=== PATIENT | male | born 1995 | race Caucasian/White ===

== ENCOUNTER 2016-05-05 20:16 | Inpatient (IN) | payer OTHER ==
[~2016-05-05] VITALS: Ht 170.2 cm; Wt 98.3 kg
[~2016-05-05 20:16] MED LIST: ABILIFY10 MG PO; ABILIFY30 MG PO; ATIVAN0.5 MG PO; CITALOPRAM HBR20 M1 PO; CLARITIN10 M3 PO; CLONAZEPAM0.5 MG PO; CLONIDINE HCL0.2 MG PO; COGENTIN0.5 MG PO; CONCERTA18 MG PO; DEPAKOTE250 MG PO; FLONASE16 GM NS; HALDOL5 MG PO; HYDROXYZINE HCL50 MG PO; LITHIUM CARBON300 MG PO; METHYLIN2.5 MG PO; METHYLIN20 MG PO; PANOXYL156 GM; PUMP; STRATTERA60 MG PO
[2016-05-05] MEDS ORDERED: RISPERDAL4 MG PO (20:46)
[2016-05-05] MEDS ORDERED: TOPAMAX100 MG PO (20:46)
[2016-05-05] MEDS ORDERED: GUANFACINE HCL E4 MG PO (20:46)
[2016-05-05] MEDS ORDERED: LITHIUM CARBON600 MG PO (20:47)
[2016-05-05] MEDS ORDERED: RITALIN5 MG PO (20:47)
[2016-05-05] MEDS ORDERED: SEROQUEL200 MG PO (20:47)
[2016-05-05] MEDS ORDERED: COGENTIN1 MG PO (20:47)
[2016-05-05] MEDS ORDERED: DESYREL 150 MG150 MG PO (20:48)
[2016-05-05 21:58] LABS: ADD MIUA? NO; BILIRUBIN NEGATIVE; BLOOD NEGATIVE; COLOR STRAW ((YELLOW)); GLUCOSE (STRIP) NEGATIVE; KETONES NEGATIVE; LEUKOCYTES NEGATIVE; NITRITE NEGATIVE; PROTEIN (STRIP) 30; SPECIFIC GRAVITY 1.008 (1.000-1.030); UCUL ADDED? NO; UROBILINOGEN 0.2 MG/DL (0.2-1.0)
[2016-05-05 22:08] LABS: AMPHETAMINE NEGATIVE (500 ng/mL); BARBITURATES NEGATIVE (200 ng/mL); BENZODIAZEPINES NEGATIVE (150 ng/mL); COCAINE NEGATIVE (150 ng/mL); INTERNAL CONTROLS VALID? YES; METHADONE NEGATIVE (200 ng/mL); METHAMPHETAMINE NEGATIVE (500 ng/mL); OPIATES (MORPHINE) NEGATIVE (100 ng/mL); OXYCODONE NEGATIVE (100 ng/mL); PHENCYCLIDINE NEGATIVE (25 ng/mL); PROPOXYPHENE NEGATIVE (300 ng/mL); THC CANNABINOIDS NEGATIVE (50 ng/mL); TRICYCLIC ANTIDEPRESSANTS NEGATIVE (300 ng/mL)
[2016-05-05 22:11] LABS: HEMATOCRIT 42.1 % (38.0-50.0); MCH 29.6 PG (29.0-34.0); MCHC 35.2 G/DL (30.0-36.0); MCV 84.2 FL (86-99); MEAN PLAT.VOLUME 11.7 uM^3 (9.0-12.4); PLATELET COUNT 240 K/uL (156-360); RBC DIS.WIDTH-CV 13.1 % (11.8-14.6); RBC DIS.WIDTH-SD 40.2 % (39-53); WHITE BLOOD COUNT 20.3 K/uL (4.1-10.2)
[2016-05-05 22:24] LABS: CHLORIDE 111 mEq/L (99-109); POTASSIUM 3.5 mEq/L (3.7-5.4); SODIUM 137 mEq/L (136-147)
[2016-05-05 22:26] LABS: GLUCOSE 115 mg/dL (70-99)
[2016-05-05 22:27] LABS: ANION GAP 12 MEQ/L (2-14)
[2016-05-05 22:28] LABS: TOTAL BILIRUBIN 0.4 mg/dL (0.0-1.0)
[2016-05-05 22:29] LABS: ALKALINE PHOSPHATASE 101 IU/L (3-129); GFR ESTIMATE (CALCULATED) > 59 mL/min/
[2016-05-05 22:31] LABS: UREA NITROGEN (BUN) 14 mg/dL (9-23)
[2016-05-06 00:39] LABS: BASOPHIL COUNT 0.1 K/uL (0-0.1); EOSINOPHIL (%) 0.9 % (0-5); EOSINOPHIL COUNT 0.2 K/uL (0-0.3); HEMATOCRIT 42.1 % (38.0-50.0); IMMATURE GRANULOCYTE (%) 0.8 % (0.0-0.7); IMMATURE GRANULOCYTE COUNT 0.1 K/uL; INSTRUMENT ABS NEUTROPHIL CT 13.4 K/uL; LYMPHOCYTE COUNT 2.8 K/uL (1.0-2.8); MCH 29.7 PG (29.0-34.0); MCHC 35.4 G/DL (30.0-36.0); MEAN PLAT.VOLUME 11.7 uM^3 (9.0-12.4); MONOCYTE (%) 6.6 % (3-12); MONOCYTE COUNT 1.2 K/uL (0-0.8); NEUTROPHIL (%) 75.8 % (45-76); NEUTROPHIL COUNT 13.4 K/uL (1.8-6.4); PLATELET COUNT 243 K/uL (156-360); RBC DIS.WIDTH-CV 13.1 % (11.8-14.6); RBC DIS.WIDTH-SD 39.7 % (39-53); RED BLOOD COUNT 5.01 M/uL (4.00-5.50); WHITE BLOOD COUNT 17.7 K/uL (4.1-10.2)
[2016-05-06 00:50] LABS: CHLORIDE 114 mEq/L (99-109); POTASSIUM 3.6 mEq/L (3.7-5.4); SODIUM 140 mEq/L (136-147)
[2016-05-06 00:51] LABS: GLUCOSE 111 mg/dL (70-99)
[2016-05-06 00:53] LABS: ANION GAP 11 MEQ/L (2-14)
[2016-05-06 00:55] LABS: GFR ESTIMATE (CALCULATED) > 59 mL/min/
[2016-05-06 00:56] LABS: UREA NITROGEN (BUN) 13 mg/dL (9-23)
[2016-05-06 02:21] LABS: BASOPHIL COUNT 0.1 K/uL (0-0.1); EOSINOPHIL (%) 1.4 % (0-5); EOSINOPHIL COUNT 0.2 K/uL (0-0.3); IMMATURE GRANULOCYTE (%) 0.5 % (0.0-0.7); IMMATURE GRANULOCYTE COUNT 0.1 K/uL; INSTRUMENT ABS NEUTROPHIL CT 10.4 K/uL; LYMPHOCYTE COUNT 2.8 K/uL (1.0-2.8); MCH 29.9 PG (29.0-34.0); MCHC 35.4 G/DL (30.0-36.0); MCV 84.5 FL (86-99); MEAN PLAT.VOLUME 11.2 uM^3 (9.0-12.4); MONOCYTE (%) 7.8 % (3-12); MONOCYTE COUNT 1.2 K/uL (0-0.8); NEUTROPHIL (%) 71.2 % (45-76); NEUTROPHIL COUNT 10.4 K/uL (1.8-6.4); PLATELET COUNT 234 K/uL (156-360); RBC DIS.WIDTH-CV 13.2 % (11.8-14.6); RED BLOOD COUNT 4.85 M/uL (4.00-5.50); WHITE BLOOD COUNT 14.7 K/uL (4.1-10.2)
[2016-05-06 02:31] LABS: CHLORIDE 117 mEq/L (99-109); POTASSIUM 3.9 mEq/L (3.7-5.4); SODIUM 142 mEq/L (136-147)
[2016-05-06 02:33] LABS: GLUCOSE 91 mg/dL (70-99)
[2016-05-06 02:34] LABS: ANION GAP 9 MEQ/L (2-14)
[2016-05-06 02:37] LABS: GFR ESTIMATE (CALCULATED) > 59 mL/min/; UREA NITROGEN (BUN) 11 mg/dL (9-23)
[2016-05-06 04:32] VITALS: BP 134/77
[2016-05-06 07:40] VITALS: BP 113/65
[2016-05-06 16:02] VITALS: BP 131/78
[2016-05-07 07:53] VITALS: BP 124/70
[2016-05-07 15:38] VITALS: BP 123/63
[2016-05-08 07:25] VITALS: BP 110/63
[2016-05-08 15:32] VITALS: BP 125/66
[2016-05-09 07:47] VITALS: BP 106/74
[2016-05-09] MEDS ORDERED: LITHIUM CARBON300 M1 PO (10:25)
[2016-05-09] MEDS ORDERED: QUETIAPINE FUM300 MG PO (10:25)
[2016-05-09] MEDS ORDERED: TOPAMAX100 MG PO (10:25)
[2016-05-09] MEDS ORDERED: DESYREL 150 MG150 MG PO (10:25)
[2016-05-09] MEDS ORDERED: LITHIUM CARBON600 MG PO (10:25)
[2016-05-09] MEDS ORDERED: TENEX1 MG PO (10:25)
[2016-05-09] MEDS ORDERED: QUETIAPINE FUMA50 MG PO (10:25)
[2016-05-09] MEDS ORDERED: COGENTIN1 MG PO (10:25)
[2016-05-09] MEDS ORDERED: RISPERDAL4 MG PO (10:25)
== END 2016-05-09 11:36 | disposition home or self-care (01) | DRG 885 ==
LOC: EME → EDBD 20:16 → EME 20:16 → 1WEST 22:54 → EDOF 22:54 → 1WEST 05-06 03:46
PROVIDERS: Emergency Medicine
DX: F31.0 Bipolar disorder, current episode hypomanic (principal); E66.9 Obesity, unspecified
CPT/HCPCS: 71020; 80048; 80048 91; 80053; 80178; 81003; 83605; 85025; 85025 91; 85027; 90837; 97150 GO; 97165 GO; 99281; 99285; J7030

== ENCOUNTER 2016-07-25 00:51 | Emergency (ER) | payer OTHER ==
[~2016-07-25] VITALS: Ht 175.3 cm; Wt 111.6 kg
[~2016-07-25 00:51] MED LIST changes: +COGENTIN1 MG PO; +DESYREL 150 MG150 MG PO; +GUANFACINE HCL E4 MG PO; +LITHIUM CARBON300 M1 PO; +LITHIUM CARBON600 MG PO; +QUETIAPINE FUM300 MG PO; +QUETIAPINE FUMA50 MG PO; +RISPERDAL4 MG PO; +RITALIN5 MG PO; +SEROQUEL200 MG PO; +TENEX1 MG PO; +TOPAMAX100 MG PO
[2016-07-25 00:56] VITALS: BP 128/86
== END 2016-07-25 01:06 | disposition left against medical advice (07) ==
LOC: EME 00:51
DX: Z04.41 Encounter for examination and observation following alleged adult rape (principal); Z53.21 Procedure and treatment not carried out due to patient leaving prior to being seen by health care provider

== ENCOUNTER 2016-07-25 11:44 | Emergency (ER) | payer OTHER ==
[~2016-07-25] VITALS: Ht 170.2 cm; Wt 104.5 kg
[2016-07-25 12:13] LABS: EOSINOPHIL (%) 1.3 % (0-5); EOSINOPHIL COUNT 0.1 K/uL (0-0.3); HEMATOCRIT 46.4 % (38.0-50.0); IMMATURE GRANULOCYTE (%) 0.3 % (0.0-0.7); LYMPHOCYTE COUNT 2.3 K/uL (1.0-2.8); MCH 29.2 PG (29.0-34.0); MCHC 34.5 G/DL (30.0-36.0); MCV 84.7 FL (86-99); MEAN PLAT.VOLUME 11.4 uM^3 (9.0-12.4); MONOCYTE (%) 7.1 % (3-12); MONOCYTE COUNT 0.7 K/uL (0-0.8); NEUTROPHIL (%) 68.2 % (45-76); PLATELET COUNT 243 K/uL (156-360); RED BLOOD COUNT 5.48 M/uL (4.00-5.50); WHITE BLOOD COUNT 10.3 K/uL (4.1-10.2)
[2016-07-25 12:28] LABS: CHLORIDE 107 mEq/L (99-109); POTASSIUM 3.5 mEq/L (3.7-5.4); SODIUM 140 mEq/L (136-147)
[2016-07-25 12:29] LABS: GLUCOSE 97 mg/dL (70-99)
[2016-07-25 12:31] LABS: ANION GAP 12 MEQ/L (2-14)
[2016-07-25 12:33] LABS: GFR ESTIMATE (CALCULATED) > 59 mL/min/; SERUM ETHYL ALCOHOL < 10 mg/dL
[2016-07-25 12:34] LABS: UREA NITROGEN (BUN) 9 mg/dL (9-23)
[2016-07-25 13:48] LABS: ADD MIUA? YES; BILIRUBIN NEGATIVE; BLOOD NEGATIVE; COLOR YELLOW ((YELLOW)); GLUCOSE (STRIP) NEGATIVE; KETONES 5; LEUKOCYTES NEGATIVE; NITRITE NEGATIVE; PROTEIN (STRIP) 30; SPECIFIC GRAVITY 1.028 (1.000-1.030); UROBILINOGEN 0.2 MG/DL (0.2-1.0)
[2016-07-25 13:53] VITALS: BP 118/88
[2016-07-25 14:03] LABS: AMPHETAMINE NEGATIVE (500 ng/mL); BARBITURATES NEGATIVE (200 ng/mL); BENZODIAZEPINES NEGATIVE (150 ng/mL); COCAINE NEGATIVE (150 ng/mL); INTERNAL CONTROLS VALID? YES; METHADONE NEGATIVE (200 ng/mL); METHAMPHETAMINE NEGATIVE (500 ng/mL); OPIATES (MORPHINE) NEGATIVE (100 ng/mL); OXYCODONE NEGATIVE (100 ng/mL); PHENCYCLIDINE NEGATIVE (25 ng/mL); PROPOXYPHENE NEGATIVE (300 ng/mL); THC CANNABINOIDS NEGATIVE (50 ng/mL); TRICYCLIC ANTIDEPRESSANTS NEGATIVE (300 ng/mL)
[2016-07-25 14:16] LABS: BACTERIA NONE SEEN /HPF; EPITHELIAL CELLS RARE /HPF; GRANULAR CASTS 0-5 /LPF; HYALINE CASTS 0-5 /LPF; MUCUS 1+ /LPF; RED BLOOD CELLS 0-5 /HPF (0-5); WHITE BLOOD CELLS 0-5 /HPF (0-5)
[2016-07-26 13:43] LABS: TREPONEMA ANTIBODY NEGATIVE (NEGATIVE)
[2016-07-27 13:36] LABS: CHLAMYDIA TRACHOMATIS NEGATIVE; NEISSERIA GONORRHOEAE NEGATIVE
== END 2016-07-25 13:53 | disposition home or self-care (01) ==
LOC: EME 11:44
PROVIDERS: Emergency Medicine
DX: T76.21XA Adult sexual abuse, suspected, initial encounter (principal); Y92.003 Bedroom of unspecified non-institutional (private) residence as the place of occurrence of the external cause; F32.9 Major depressive disorder, single episode, unspecified; B35.6 Tinea cruris; F10.10 Alcohol abuse, uncomplicated; F41.9 Anxiety disorder, unspecified; F90.9 Attention-deficit hyperactivity disorder, unspecified type
CPT/HCPCS: 80048; 81003; 85025; 86780; 87491; 87591; 99281; 99285; G0480; J0696

== ENCOUNTER 2016-07-30 16:06 | Emergency (ER) | payer OTHER ==
[~2016-07-30] VITALS: Ht 175.3 cm; Wt 107.5 kg
[2016-07-30 18:04] VITALS: BP 132/80
== END 2016-07-30 18:05 | disposition home or self-care (01) ==
LOC: EME 16:06
DX: F32.9 Major depressive disorder, single episode, unspecified (principal); F63.81 Intermittent explosive disorder; Z91.14 Patient's other noncompliance with medication regimen
CPT/HCPCS: 90837; 99281; 99284

== ENCOUNTER 2016-09-19 17:13 | Emergency (ER) | payer OTHER ==
[~2016-09-19] VITALS: Ht 172.7 cm; Wt 113.8 kg
[2016-09-19 17:39] LABS: BASOPHIL COUNT 0.1 K/uL (0-0.1); EOSINOPHIL (%) 1.4 % (0-5); EOSINOPHIL COUNT 0.2 K/uL (0-0.3); HEMATOCRIT 44.7 % (38.0-50.0); IMMATURE GRANULOCYTE (%) 0.4 % (0.0-0.7); IMMATURE GRANULOCYTE COUNT 0.1 K/uL; INSTRUMENT ABS NEUTROPHIL CT 9.3 K/uL; LYMPHOCYTE COUNT 3.4 K/uL (1.0-2.8); MCH 29.5 PG (29.0-34.0); MCHC 36.2 G/DL (30.0-36.0); MCV 81.4 FL (86-99); MEAN PLAT.VOLUME 11.3 uM^3 (9.0-12.4); MONOCYTE (%) 6.7 % (3-12); MONOCYTE COUNT 0.9 K/uL (0-0.8); NEUTROPHIL (%) 66.8 % (45-76); NEUTROPHIL COUNT 9.3 K/uL (1.8-6.4); PLATELET COUNT 234 K/uL (156-360); RBC DIS.WIDTH-CV 12.8 % (11.8-14.6); RBC DIS.WIDTH-SD 37.9 % (39-53); RED BLOOD COUNT 5.49 M/uL (4.00-5.50); WHITE BLOOD COUNT 13.9 K/uL (4.1-10.2)
[2016-09-19 17:47] LABS: ADD MIUA? NO; BILIRUBIN NEGATIVE; BLOOD NEGATIVE; COLOR YELLOW ((YELLOW)); GLUCOSE (STRIP) NEGATIVE; KETONES NEGATIVE; LEUKOCYTES NEGATIVE; NITRITE NEGATIVE; PROTEIN (STRIP) NEGATIVE; SPECIFIC GRAVITY 1.017 (1.000-1.030); UROBILINOGEN 0.2 MG/DL (0.2-1.0)
[2016-09-19 17:52] LABS: CHLORIDE 109 mEq/L (99-109); POTASSIUM 3.8 mEq/L (3.7-5.4); SODIUM 138 mEq/L (136-147)
[2016-09-19 17:54] LABS: GLUCOSE 106 mg/dL (70-99)
[2016-09-19 17:55] LABS: ANION GAP 11 MEQ/L (2-14)
[2016-09-19 17:56] LABS: TOTAL BILIRUBIN 0.3 mg/dL (0.0-1.0)
[2016-09-19 17:57] LABS: ALKALINE PHOSPHATASE 129 IU/L (3-129)
[2016-09-19 17:58] LABS: GFR ESTIMATE (CALCULATED) > 59 mL/min/
[2016-09-19 17:59] LABS: UREA NITROGEN (BUN) 9 mg/dL (9-23)
[2016-09-19 18:01] LABS: LIPASE 22 U/L (1.0-51.0)
[2016-09-19 18:22] VITALS: BP 133/88
== END 2016-09-19 18:22 | disposition home or self-care (01) ==
LOC: EXP 17:13 → EME 17:13 → EXP 18:22
PROVIDERS: Physician Assistant
DX: R10.9 Unspecified abdominal pain (principal)
CPT/HCPCS: 74022; 80053; 80178; 81003; 83690; 85025; 99281; 99284

== ENCOUNTER 2016-09-28 13:48 | Inpatient (IN) | payer OTHER ==
[~2016-09-28] VITALS: Ht 172.7 cm; Wt 112.7 kg
[2016-09-28 14:32] LABS: HEMATOCRIT 45.9 % (38.0-50.0); MCH 28.9 PG (29.0-34.0); MCHC 34.6 G/DL (30.0-36.0); MCV 83.3 FL (86-99); MEAN PLAT.VOLUME 11.4 uM^3 (9.0-12.4); PLATELET COUNT 238 K/uL (156-360); RBC DIS.WIDTH-CV 13.1 % (11.8-14.6); RBC DIS.WIDTH-SD 39.8 % (39-53); RED BLOOD COUNT 5.51 M/uL (4.00-5.50); WHITE BLOOD COUNT 11.6 K/uL (4.1-10.2)
[2016-09-28 14:42] LABS: CHLORIDE 109 mEq/L (99-109); POTASSIUM 3.9 mEq/L (3.7-5.4); SODIUM 139 mEq/L (136-147)
[2016-09-28 14:44] LABS: GLUCOSE 92 mg/dL (70-99)
[2016-09-28 14:46] LABS: ANION GAP 10 MEQ/L (2-14)
[2016-09-28 14:47] LABS: SERUM ETHYL ALCOHOL < 10 mg/dL
[2016-09-28 14:48] LABS: GFR ESTIMATE (CALCULATED) > 59 mL/min/
[2016-09-28 14:49] LABS: UREA NITROGEN (BUN) 11 mg/dL (9-23)
[2016-09-28 14:56] LABS: AMPHETAMINE NEGATIVE (500 ng/mL); BARBITURATES NEGATIVE (200 ng/mL); BENZODIAZEPINES NEGATIVE (150 ng/mL); COCAINE NEGATIVE (150 ng/mL); INTERNAL CONTROLS VALID? YES; METHADONE NEGATIVE (200 ng/mL); METHAMPHETAMINE NEGATIVE (500 ng/mL); OPIATES (MORPHINE) NEGATIVE (100 ng/mL); OXYCODONE NEGATIVE (100 ng/mL); PHENCYCLIDINE NEGATIVE (25 ng/mL); PROPOXYPHENE NEGATIVE (300 ng/mL); THC CANNABINOIDS NEGATIVE (50 ng/mL); TRICYCLIC ANTIDEPRESSANTS NEGATIVE (300 ng/mL)
[2016-09-28 20:11] VITALS: BP 138/83
[2016-09-28] MEDS ORDERED: AMBIEN5 MG PO (20:54)
[2016-09-29 08:07] VITALS: BP 111/56
[2016-09-29 16:05] VITALS: BP 121/70
[2016-09-30 07:22] VITALS: BP 117/75
[2016-09-30 15:21] VITALS: BP 126/76
[2016-10-01 07:45] VITALS: BP 115/58
== END 2016-10-01 11:36 | disposition home or self-care (01) | DRG 885 ==
LOC: EME 13:48 → 1WEST 16:02 → EDOF 16:02 → ENRESERV 20:02 → 1WEST 20:03
PROVIDERS: Emergency Medicine
DX: F31.0 Bipolar disorder, current episode hypomanic (principal); R45.850 Homicidal ideations; R45.851 Suicidal ideations; Z91.14 Patient's other noncompliance with medication regimen; R47.9 Unspecified speech disturbances; R00.2 Palpitations; R03.0 Elevated blood-pressure reading, without diagnosis of hypertension; R53.83 Other fatigue; T50.905A Adverse effect of unspecified drugs, medicaments and biological substances, initial encounter; E66.9 Obesity, unspecified; R41.83 Borderline intellectual functioning; Z68.37 Body mass index [BMI] 37.0-37.9, adult
CPT/HCPCS: 80048; 80178; 85027; 90837; 93005; 97150 GO; 97165 GO; 99281; 99285; G0480

== ENCOUNTER 2016-10-21 20:32 | Emergency (ER) | payer OTHER ==
[~2016-10-21] VITALS: Ht 172.7 cm; Wt 114.0 kg
[~2016-10-21 20:32] MED LIST changes: +AMBIEN5 MG PO
[2016-10-21 21:26] LABS: ADD MIUA? NO; BILIRUBIN NEGATIVE; BLOOD NEGATIVE; COLOR YELLOW ((YELLOW)); GLUCOSE (STRIP) NEGATIVE; KETONES NEGATIVE; LEUKOCYTES NEGATIVE; NITRITE NEGATIVE; PROTEIN (STRIP) NEGATIVE; SPECIFIC GRAVITY 1.015 (1.000-1.030); UROBILINOGEN 0.2 MG/DL (0.2-1.0)
[2016-10-21 21:33] LABS: CHLORIDE 115 mEq/L (99-109); POTASSIUM 3.4 mEq/L (3.7-5.4); SODIUM 139 mEq/L (136-147)
[2016-10-21 21:34] LABS: HEMATOCRIT 43.6 % (38.0-50.0); MCH 28.7 PG (29.0-34.0); MCHC 34.9 G/DL (30.0-36.0); MCV 82.4 FL (86-99); MEAN PLAT.VOLUME 11.5 uM^3 (9.0-12.4); PLATELET COUNT 222 K/uL (156-360); RBC DIS.WIDTH-SD 38.7 % (39-53); RED BLOOD COUNT 5.29 M/uL (4.00-5.50); WHITE BLOOD COUNT 10.4 K/uL (4.1-10.2)
[2016-10-21 21:35] LABS: GLUCOSE 98 mg/dL (70-99)
[2016-10-21 21:36] LABS: ANION GAP 5 MEQ/L (2-14)
[2016-10-21 21:37] LABS: TOTAL BILIRUBIN 0.3 mg/dL (0.0-1.0)
[2016-10-21 21:38] LABS: SERUM ETHYL ALCOHOL < 10 mg/dL
[2016-10-21 21:39] LABS: ALKALINE PHOSPHATASE 123 IU/L (3-129); GFR ESTIMATE (CALCULATED) > 59 mL/min/
[2016-10-21 21:40] LABS: UREA NITROGEN (BUN) 12 mg/dL (9-23)
[2016-10-21 21:44] LABS: AMPHETAMINE NEGATIVE (500 ng/mL); BARBITURATES NEGATIVE (200 ng/mL); BENZODIAZEPINES NEGATIVE (150 ng/mL); COCAINE NEGATIVE (150 ng/mL); INTERNAL CONTROLS VALID? YES; METHADONE NEGATIVE (200 ng/mL); METHAMPHETAMINE NEGATIVE (500 ng/mL); OPIATES (MORPHINE) NEGATIVE (100 ng/mL); OXYCODONE NEGATIVE (100 ng/mL); PHENCYCLIDINE NEGATIVE (25 ng/mL); PROPOXYPHENE NEGATIVE (300 ng/mL); THC CANNABINOIDS NEGATIVE (50 ng/mL); TRICYCLIC ANTIDEPRESSANTS NEGATIVE (300 ng/mL)
[2016-10-21 22:11] VITALS: BP 144/101
== END 2016-10-21 22:12 | disposition home or self-care (01) ==
LOC: EME 20:32
PROVIDERS: Emergency Medicine
DX: F31.9 Bipolar disorder, unspecified (principal); R10.9 Unspecified abdominal pain; R45.4 Irritability and anger; Z91.14 Patient's other noncompliance with medication regimen
CPT/HCPCS: 80053; 81003; 85027; 90839; 99281; 99284; G0480

== ENCOUNTER 2016-10-22 14:08 | Emergency (ER) | payer OTHER ==
[~2016-10-22] VITALS: Ht 175.3 cm; Wt 114.5 kg
[2016-10-22 17:40] VITALS: BP 132/99
== END 2016-10-22 17:40 | disposition home or self-care (01) ==
LOC: EME 14:08
DX: F31.9 Bipolar disorder, unspecified (principal); F79 Unspecified intellectual disabilities; F90.9 Attention-deficit hyperactivity disorder, unspecified type
CPT/HCPCS: 99281; 99283

== ENCOUNTER 2016-10-27 22:19 | Emergency (ER) | payer OTHER ==
[~2016-10-27] VITALS: Ht 177.8 cm; Wt 114.9 kg
[2016-10-27 22:46] LABS: HEMATOCRIT 45.5 % (38.0-50.0); MCH 28.9 PG (29.0-34.0); MCHC 34.9 G/DL (30.0-36.0); MCV 82.7 FL (86-99); MEAN PLAT.VOLUME 11.2 uM^3 (9.0-12.4); PLATELET COUNT 213 K/uL (156-360); RBC DIS.WIDTH-SD 38.9 % (39-53); WHITE BLOOD COUNT 11.1 K/uL (4.1-10.2)
[2016-10-27 22:54] LABS: CHLORIDE 112 mEq/L (99-109); POTASSIUM 3.7 mEq/L (3.7-5.4); SODIUM 140 mEq/L (136-147)
[2016-10-27 22:56] LABS: GLUCOSE 131 mg/dL (70-99)
[2016-10-27 22:57] LABS: ANION GAP 13 MEQ/L (2-14)
[2016-10-27 22:58] LABS: TOTAL BILIRUBIN 0.2 mg/dL (0.0-1.0)
[2016-10-27 23:00] LABS: ALKALINE PHOSPHATASE 124 IU/L (3-129); GFR ESTIMATE (CALCULATED) > 59 mL/min/
[2016-10-27 23:01] LABS: UREA NITROGEN (BUN) 10 mg/dL (9-23)
[2016-10-27 23:39] LABS: SALICYLATE < 5.0 MG/DL (15-30)
[2016-10-27 23:45] LABS: TROP-I INTERPRETATION NEGATIVE; TROPONIN-I < 0.01 ng/mL (0.0-0.30)
[2016-10-28 03:33] LABS: ADD MIUA? NO; BILIRUBIN NEGATIVE; BLOOD NEGATIVE; COLOR YELLOW ((YELLOW)); GLUCOSE (STRIP) NEGATIVE; KETONES NEGATIVE; LEUKOCYTES NEGATIVE; NITRITE NEGATIVE; PROTEIN (STRIP) NEGATIVE; SPECIFIC GRAVITY 1.016 (1.000-1.030); UCUL ADDED? NO; UROBILINOGEN 0.2 MG/DL (0.2-1.0)
[2016-10-28 04:10] VITALS: BP 129/90
== END 2016-10-28 04:10 | disposition home or self-care (01) ==
LOC: EME 22:19
DX: M54.5 Low back pain (principal); H93.13 Tinnitus, bilateral
CPT/HCPCS: 71020; 74176; 80053; 80178; 81003; 84484; 85027; 99281; 99284; G0480

== ENCOUNTER 2016-11-06 19:28 | Inpatient (IN) | payer OTHER ==
[~2016-11-06] VITALS: Ht 174 cm; Wt 118.6 kg
[2016-11-06 22:26] LABS: ADD MIUA? NO; BILIRUBIN NEGATIVE; BLOOD NEGATIVE; COLOR YELLOW ((YELLOW)); GLUCOSE (STRIP) NEGATIVE; KETONES NEGATIVE; LEUKOCYTES NEGATIVE; NITRITE NEGATIVE; PROTEIN (STRIP) NEGATIVE; SPECIFIC GRAVITY 1.026 (1.000-1.030); UROBILINOGEN 0.2 MG/DL (0.2-1.0)
[2016-11-06 22:30] LABS: AMPHETAMINE NEGATIVE (500 ng/mL); BARBITURATES NEGATIVE (200 ng/mL); BENZODIAZEPINES NEGATIVE (150 ng/mL); COCAINE NEGATIVE (150 ng/mL); INTERNAL CONTROLS VALID? YES; METHADONE NEGATIVE (200 ng/mL); METHAMPHETAMINE NEGATIVE (500 ng/mL); OPIATES (MORPHINE) NEGATIVE (100 ng/mL); OXYCODONE NEGATIVE (100 ng/mL); PHENCYCLIDINE NEGATIVE (25 ng/mL); PROPOXYPHENE NEGATIVE (300 ng/mL); THC CANNABINOIDS NEGATIVE (50 ng/mL); TRICYCLIC ANTIDEPRESSANTS NEGATIVE (300 ng/mL)
[2016-11-07 00:37] LABS: HEMATOCRIT 45.2 % (38.0-50.0); MCH 28.8 PG (29.0-34.0); MCHC 34.7 G/DL (30.0-36.0); MCV 82.8 FL (86-99); MEAN PLAT.VOLUME 11.5 uM^3 (9.0-12.4); PLATELET COUNT 229 K/uL (156-360); RBC DIS.WIDTH-CV 13.1 % (11.8-14.6); RBC DIS.WIDTH-SD 39.1 % (39-53); RED BLOOD COUNT 5.46 M/uL (4.00-5.50); WHITE BLOOD COUNT 14.4 K/uL (4.1-10.2)
[2016-11-07 00:48] LABS: CHLORIDE 108 mEq/L (99-109); POTASSIUM 3.6 mEq/L (3.7-5.4); SODIUM 139 mEq/L (136-147)
[2016-11-07 00:49] LABS: GLUCOSE 119 mg/dL (70-99)
[2016-11-07 00:51] LABS: ANION GAP 7 MEQ/L (2-14)
[2016-11-07 00:53] LABS: GFR ESTIMATE (CALCULATED) > 59 mL/min/
[2016-11-07 00:54] LABS: UREA NITROGEN (BUN) 10 mg/dL (9-23)
[2016-11-07 11:02] VITALS: BP 90/71
[2016-11-07 11:23] VITALS: BP 90/71
[2016-11-07 15:46] VITALS: BP 123/67
[2016-11-08 08:14] VITALS: BP 96/54
[2016-11-08 15:53] VITALS: BP 117/58
[2016-11-09 07:52] VITALS: BP 103/52
== END 2016-11-09 12:39 | disposition home or self-care (01) | DRG 885 ==
LOC: EME 19:28 → EDOF 11-07 09:41 → 1WEST 11-07 09:41 → ENRESERV 11-07 10:26 → 1WEST 11-07 10:59
PROVIDERS: Nurse Practitioner Family
DX: F25.0 Schizoaffective disorder, bipolar type (principal); H66.92 Otitis media, unspecified, left ear; R45.850 Homicidal ideations; F78 Other intellectual disabilities; F91.9 Conduct disorder, unspecified; F63.81 Intermittent explosive disorder; F43.23 Adjustment disorder with mixed anxiety and depressed mood
CPT/HCPCS: 80048; 80178; 81003; 85027; 90686; 90839; 97150 GO; 97165 GO; 99281; 99285

== ENCOUNTER 2016-11-12 23:29 | Inpatient (IN) | payer OTHER ==
[~2016-11-12] VITALS: Ht 172.7 cm; Wt 125.0 kg
[2016-11-13 00:46] LABS: ADD MIUA? NO; BILIRUBIN NEGATIVE; BLOOD NEGATIVE; COLOR YELLOW ((YELLOW)); GLUCOSE (STRIP) NEGATIVE; KETONES NEGATIVE; LEUKOCYTES NEGATIVE; NITRITE NEGATIVE; PROTEIN (STRIP) 30; SPECIFIC GRAVITY 1.024 (1.000-1.030); UROBILINOGEN 0.2 MG/DL (0.2-1.0)
[2016-11-13 00:51] LABS: HEMATOCRIT 44.7 % (38.0-50.0); MCH 28.5 PG (29.0-34.0); MCHC 34.5 G/DL (30.0-36.0); MCV 82.6 FL (86-99); MEAN PLAT.VOLUME 11.1 uM^3 (9.0-12.4); PLATELET COUNT 230 K/uL (156-360); RBC DIS.WIDTH-SD 38.8 % (39-53); RED BLOOD COUNT 5.41 M/uL (4.00-5.50); WHITE BLOOD COUNT 11.5 K/uL (4.1-10.2)
[2016-11-13 01:00] LABS: CHLORIDE 109 mEq/L (99-109); POTASSIUM 3.4 mEq/L (3.7-5.4); SODIUM 141 mEq/L (136-147)
[2016-11-13 01:02] LABS: GLUCOSE 97 mg/dL (70-99)
[2016-11-13 01:03] LABS: ANION GAP 11 MEQ/L (2-14)
[2016-11-13 01:05] LABS: GFR ESTIMATE (CALCULATED) > 59 mL/min/; SERUM ETHYL ALCOHOL < 10 mg/dL
[2016-11-13 01:06] LABS: UREA NITROGEN (BUN) 9 mg/dL (9-23)
[2016-11-13 03:05] VITALS: BP 113/68
[2016-11-13 04:18] LABS: AMPHETAMINE NEGATIVE (500 ng/mL); BARBITURATES NEGATIVE (200 ng/mL); BENZODIAZEPINES NEGATIVE (150 ng/mL); COCAINE NEGATIVE (150 ng/mL); INTERNAL CONTROLS VALID? YES; METHADONE NEGATIVE (200 ng/mL); METHAMPHETAMINE NEGATIVE (500 ng/mL); OPIATES (MORPHINE) NEGATIVE (100 ng/mL); OXYCODONE NEGATIVE (100 ng/mL); PHENCYCLIDINE NEGATIVE (25 ng/mL); PROPOXYPHENE NEGATIVE (300 ng/mL); THC CANNABINOIDS NEGATIVE (50 ng/mL); TRICYCLIC ANTIDEPRESSANTS NEGATIVE (300 ng/mL)
[2016-11-13 07:00] LABS: UCUL ADDED? NO
[2016-11-13 07:54] VITALS: BP 119/59
[2016-11-13 15:31] VITALS: BP 129/76
[2016-11-14 07:14] VITALS: BP 117/75
[2016-11-14 15:24] VITALS: BP 118/74
[2016-11-15 07:22] VITALS: BP 118/66
[2016-11-15 15:23] VITALS: BP 115/70
[2016-11-16 07:32] VITALS: BP 100/60
[2016-11-16] MEDS ORDERED: ABILIFY5 MG PO (08:37)
[2016-11-16] MEDS ORDERED: QUETIAPINE FUM300 MG PO (08:42)
[2016-11-16] MEDS ORDERED: LITHIUM CARBON600 MG PO (08:42)
[2016-11-16] MEDS ORDERED: QUETIAPINE FUM100 MG PO (08:42)
[2016-11-16] MEDS ORDERED: COGENTIN1 MG PO (08:42)
[2016-11-16] MEDS ORDERED: TOPAMAX100 MG PO (08:42)
[2016-11-16] MEDS ORDERED: TENEX1 MG PO (08:42)
[2016-11-16] MEDS ORDERED: LITHIUM CARBON300 M1 PO (08:42)
[2016-11-16] MEDS ORDERED: TENEX2 MG PO (08:53)
== END 2016-11-16 10:36 | disposition home or self-care (01) | DRG 885 ==
LOC: EME 23:29 → EDOF 11-13 01:24 → 1WEST 11-13 01:24 → ENRESERV 11-13 02:55 → 1WEST 11-13 02:56
PROVIDERS: Emergency Medicine
DX: F25.0 Schizoaffective disorder, bipolar type (principal); R45.851 Suicidal ideations; F70 Mild intellectual disabilities; F22 Delusional disorders; R45.850 Homicidal ideations; Z91.5 Personal history of self-harm; Z23 Encounter for immunization
CPT/HCPCS: 80048; 81003; 85027; 90837; 97150 GO; 97165 GO; 99281; 99285; G0480

== ENCOUNTER 2017-01-05 21:10 | Emergency (ER) | payer OTHER ==
[~2017-01-05] VITALS: Ht 172.7 cm; Wt 114.1 kg
[~2017-01-05 21:10] MED LIST changes: +ABILIFY5 MG PO; +QUETIAPINE FUM100 MG PO; +TENEX2 MG PO
[2017-01-06 00:28] VITALS: BP 136/89
== END 2017-01-06 00:29 | disposition home or self-care (01) ==
LOC: EME 21:10
DX: F41.9 Anxiety disorder, unspecified (principal); R00.2 Palpitations; T43.215A Adverse effect of selective serotonin and norepinephrine reuptake inhibitors, initial encounter; T43.595A Adverse effect of other antipsychotics and neuroleptics, initial encounter; F90.9 Attention-deficit hyperactivity disorder, unspecified type; F32.9 Major depressive disorder, single episode, unspecified
CPT/HCPCS: 93005; 99281; 99283

== ENCOUNTER 2017-01-13 13:49 | Emergency (ER) | payer OTHER ==
[~2017-01-13] VITALS: Ht 172.7 cm; Wt 113.4 kg
[2017-01-13 14:37] LABS: HEMATOCRIT 46.2 % (38.0-50.0); MCH 29.5 PG (29.0-34.0); MCHC 34.6 G/DL (30.0-36.0); MCV 85.2 FL (86-99); MEAN PLAT.VOLUME 11.5 uM^3 (9.0-12.4); PLATELET COUNT 227 K/uL (156-360); RBC DIS.WIDTH-CV 13.2 % (11.8-14.6); RED BLOOD COUNT 5.42 M/uL (4.00-5.50); WHITE BLOOD COUNT 11.7 K/uL (4.1-10.2)
[2017-01-13 14:47] LABS: CHLORIDE 107 mEq/L (99-109); POTASSIUM 4.2 mEq/L (3.7-5.4); SODIUM 141 mEq/L (136-147)
[2017-01-13 14:49] LABS: GLUCOSE 91 mg/dL (70-99)
[2017-01-13 14:50] LABS: ANION GAP 10 MEQ/L (2-14)
[2017-01-13 14:52] LABS: SERUM ETHYL ALCOHOL < 10 mg/dL
[2017-01-13 14:53] LABS: GFR ESTIMATE (CALCULATED) > 59 mL/min/
[2017-01-13 14:54] LABS: UREA NITROGEN (BUN) 10 mg/dL (9-23)
[2017-01-13 14:56] LABS: SALICYLATE < 5.0 MG/DL (15-30)
[2017-01-13 15:07] LABS: AMPHETAMINE NEGATIVE (500 ng/mL); BARBITURATES NEGATIVE (200 ng/mL); BENZODIAZEPINES NEGATIVE (150 ng/mL); COCAINE NEGATIVE (150 ng/mL); INTERNAL CONTROLS VALID? YES; METHADONE NEGATIVE (200 ng/mL); METHAMPHETAMINE NEGATIVE (500 ng/mL); OPIATES (MORPHINE) NEGATIVE (100 ng/mL); OXYCODONE NEGATIVE (100 ng/mL); PHENCYCLIDINE NEGATIVE (25 ng/mL); PROPOXYPHENE NEGATIVE (300 ng/mL); THC CANNABINOIDS NEGATIVE (50 ng/mL); TRICYCLIC ANTIDEPRESSANTS NEGATIVE (300 ng/mL)
[2017-01-13 16:05] VITALS: BP 150/84
== END 2017-01-13 16:59 | disposition home or self-care (01) ==
LOC: EME 13:49
PROVIDERS: Emergency Medicine
DX: F32.9 Major depressive disorder, single episode, unspecified (principal); F25.0 Schizoaffective disorder, bipolar type; F70 Mild intellectual disabilities; F90.9 Attention-deficit hyperactivity disorder, unspecified type; F41.9 Anxiety disorder, unspecified; Z88.8 Allergy status to other drugs, medicaments and biological substances
CPT/HCPCS: 80048; 85027; 90837; 99281; 99285; G0480

== ENCOUNTER 2017-01-13 20:07 | Emergency (ER) | payer OTHER ==
[~2017-01-13] VITALS: Ht 172.7 cm; Wt 114.0 kg
[2017-01-13 21:39] LABS: BASOPHIL COUNT 0.1 K/uL (0-0.1); EOSINOPHIL (%) 1.4 % (0-5); EOSINOPHIL COUNT 0.2 K/uL (0-0.3); HEMATOCRIT 45.4 % (38.0-50.0); IMMATURE GRANULOCYTE (%) 0.4 % (0.0-0.7); IMMATURE GRANULOCYTE COUNT 0.1 K/uL; INSTRUMENT ABS NEUTROPHIL CT 6.6 K/uL; LYMPHOCYTE COUNT 3.5 K/uL (1.0-2.8); MCH 29.6 PG (29.0-34.0); MCHC 34.8 G/DL (30.0-36.0); MCV 85.2 FL (86-99); MEAN PLAT.VOLUME 11.2 uM^3 (9.0-12.4); MONOCYTE (%) 8.9 % (3-12); NEUTROPHIL (%) 57.7 % (45-76); NEUTROPHIL COUNT 6.6 K/uL (1.8-6.4); PLATELET COUNT 223 K/uL (156-360); RBC DIS.WIDTH-CV 13.3 % (11.8-14.6); RBC DIS.WIDTH-SD 41.2 % (39-53); RED BLOOD COUNT 5.33 M/uL (4.00-5.50); WHITE BLOOD COUNT 11.4 K/uL (4.1-10.2)
[2017-01-13 21:50] LABS: CHLORIDE 108 mEq/L (99-109); POTASSIUM 3.9 mEq/L (3.7-5.4); SODIUM 139 mEq/L (136-147)
[2017-01-13 21:52] LABS: GLUCOSE 108 mg/dL (70-99)
[2017-01-13 21:53] LABS: ANION GAP 9 MEQ/L (2-14)
[2017-01-13 21:54] LABS: TOTAL BILIRUBIN 0.2 mg/dL (0.0-1.0)
[2017-01-13 21:55] LABS: SERUM ETHYL ALCOHOL < 10 mg/dL
[2017-01-13 21:56] LABS: GFR ESTIMATE (CALCULATED) > 59 mL/min/
[2017-01-13 21:57] LABS: ALKALINE PHOSPHATASE 135 IU/L (3-129)
[2017-01-13 21:58] LABS: DIRECT BILIRUBIN 0.1 mg/dL (0.0-0.3); UREA NITROGEN (BUN) 12 mg/dL (9-23)
[2017-01-13 22:00] LABS: SALICYLATE < 5.0 MG/DL (15-30)
[2017-01-13 22:16] LABS: AMPHETAMINE NEGATIVE (500 ng/mL); BARBITURATES NEGATIVE (200 ng/mL); BENZODIAZEPINES NEGATIVE (150 ng/mL); COCAINE NEGATIVE (150 ng/mL); INTERNAL CONTROLS VALID? YES; METHADONE NEGATIVE (200 ng/mL); METHAMPHETAMINE NEGATIVE (500 ng/mL); OPIATES (MORPHINE) NEGATIVE (100 ng/mL); OXYCODONE NEGATIVE (100 ng/mL); PHENCYCLIDINE NEGATIVE (25 ng/mL); PROPOXYPHENE NEGATIVE (300 ng/mL); THC CANNABINOIDS NEGATIVE (50 ng/mL); TRICYCLIC ANTIDEPRESSANTS PRESUMPTIVE POSITIVE (300 ng/mL)
[2017-01-14 02:50] VITALS: BP 101/57
== END 2017-01-14 02:52 | disposition home or self-care (01) ==
LOC: EME 20:07
PROVIDERS: Emergency Medicine
DX: F25.0 Schizoaffective disorder, bipolar type (principal); F70 Mild intellectual disabilities; F32.9 Major depressive disorder, single episode, unspecified; F90.9 Attention-deficit hyperactivity disorder, unspecified type; F41.9 Anxiety disorder, unspecified
CPT/HCPCS: 80048 91; 80076; 85025; 90837; 93005; 99281; 99284; G0480

== ENCOUNTER 2017-01-16 21:49 | Emergency (ER) | payer OTHER ==
[~2017-01-16] VITALS: Ht 172.7 cm; Wt 115.5 kg
[2017-01-16 22:37] LABS: BASOPHIL COUNT 0.1 K/uL (0-0.1); EOSINOPHIL (%) 1.5 % (0-5); EOSINOPHIL COUNT 0.2 K/uL (0-0.3); HEMATOCRIT 44.8 % (38.0-50.0); IMMATURE GRANULOCYTE (%) 0.3 % (0.0-0.7); INSTRUMENT ABS NEUTROPHIL CT 7.6 K/uL; LYMPHOCYTE COUNT 3.7 K/uL (1.0-2.8); MCH 29.2 PG (29.0-34.0); MCHC 34.6 G/DL (30.0-36.0); MCV 84.4 FL (86-99); MEAN PLAT.VOLUME 11.5 uM^3 (9.0-12.4); MONOCYTE COUNT 0.9 K/uL (0-0.8); NEUTROPHIL (%) 60.9 % (45-76); NEUTROPHIL COUNT 7.6 K/uL (1.8-6.4); PLATELET COUNT 234 K/uL (156-360); RBC DIS.WIDTH-CV 13.2 % (11.8-14.6); RBC DIS.WIDTH-SD 40.6 % (39-53); RED BLOOD COUNT 5.31 M/uL (4.00-5.50); WHITE BLOOD COUNT 12.4 K/uL (4.1-10.2)
[2017-01-16 22:44] LABS: D-DIMER ELISA < 150.00 ng/mLDDU (<230)
[2017-01-16 22:47] LABS: CHLORIDE 108 mEq/L (99-109); POTASSIUM 3.7 mEq/L (3.7-5.4); SODIUM 139 mEq/L (136-147)
[2017-01-16 22:49] LABS: GLUCOSE 100 mg/dL (70-99)
[2017-01-16 22:50] LABS: ANION GAP 10 MEQ/L (2-14)
[2017-01-16 22:52] LABS: GFR ESTIMATE (CALCULATED) > 59 mL/min/
[2017-01-16 22:53] LABS: UREA NITROGEN (BUN) 15 mg/dL (9-23)
[2017-01-16 22:58] LABS: TROP-I INTERPRETATION NEGATIVE; TROPONIN-I < 0.01 ng/mL (0.0-0.30)
[2017-01-17 01:07] VITALS: BP 121/66
== END 2017-01-17 00:45 | disposition home or self-care (01) ==
LOC: EME 21:49
PROVIDERS: Emergency Medicine
DX: R00.0 Tachycardia, unspecified (principal); R00.2 Palpitations
CPT/HCPCS: 71020; 80048; 84484; 85025; 85379; 93005; 99281; 99285; J7030

== ENCOUNTER 2017-01-17 21:35 | Emergency (ER) | payer OTHER ==
[~2017-01-17] VITALS: Ht 172.7 cm; Wt 114.8 kg
[2017-01-17 22:42] LABS: HEMATOCRIT 45.7 % (38.0-50.0); MCHC 33.5 G/DL (30.0-36.0); MCV 86.7 FL (86-99); MEAN PLAT.VOLUME 11.3 uM^3 (9.0-12.4); PLATELET COUNT 221 K/uL (156-360); RBC DIS.WIDTH-CV 13.3 % (11.8-14.6); RBC DIS.WIDTH-SD 42.1 % (39-53); RED BLOOD COUNT 5.27 M/uL (4.00-5.50); WHITE BLOOD COUNT 11.4 K/uL (4.1-10.2)
[2017-01-17 22:46] LABS: ADD MIUA? NO; BILIRUBIN NEGATIVE; BLOOD NEGATIVE; COLOR STRAW ((YELLOW)); GLUCOSE (STRIP) NEGATIVE; KETONES NEGATIVE; LEUKOCYTES NEGATIVE; NITRITE NEGATIVE; PROTEIN (STRIP) NEGATIVE; SPECIFIC GRAVITY 1.016 (1.000-1.030); UCUL ADDED? NO; UROBILINOGEN 0.2 MG/DL (0.2-1.0)
[2017-01-17 22:53] LABS: CHLORIDE 106 mEq/L (99-109); POTASSIUM 3.5 mEq/L (3.7-5.4); SODIUM 140 mEq/L (136-147)
[2017-01-17 22:54] LABS: GLUCOSE 94 mg/dL (70-99)
[2017-01-17 22:56] LABS: ANION GAP 11 MEQ/L (2-14)
[2017-01-17 22:57] LABS: SERUM ETHYL ALCOHOL < 10 mg/dL
[2017-01-17 22:58] LABS: GFR ESTIMATE (CALCULATED) > 59 mL/min/ (58.99-99999)
[2017-01-17 22:59] LABS: UREA NITROGEN (BUN) 12 mg/dL (9-23)
[2017-01-18 00:03] LABS: AMPHETAMINE NEGATIVE (500 ng/mL); BARBITURATES NEGATIVE (200 ng/mL); BENZODIAZEPINES NEGATIVE (150 ng/mL); COCAINE NEGATIVE (150 ng/mL); INTERNAL CONTROLS VALID? YES; METHADONE NEGATIVE (200 ng/mL); METHAMPHETAMINE NEGATIVE (500 ng/mL); OPIATES (MORPHINE) NEGATIVE (100 ng/mL); OXYCODONE NEGATIVE (100 ng/mL); PHENCYCLIDINE NEGATIVE (25 ng/mL); PROPOXYPHENE NEGATIVE (300 ng/mL); THC CANNABINOIDS NEGATIVE (50 ng/mL); TRICYCLIC ANTIDEPRESSANTS PRESUMPTIVE POSITIVE (300 ng/mL)
[2017-01-18 00:10] VITALS: BP 140/92
== END 2017-01-18 00:11 | disposition home or self-care (01) ==
LOC: EME 21:35
PROVIDERS: Emergency Medicine
DX: F91.9 Conduct disorder, unspecified (principal); F25.0 Schizoaffective disorder, bipolar type; F70 Mild intellectual disabilities; Z04.6 Encounter for general psychiatric examination, requested by authority; F32.9 Major depressive disorder, single episode, unspecified; F41.9 Anxiety disorder, unspecified; F90.9 Attention-deficit hyperactivity disorder, unspecified type
CPT/HCPCS: 80048; 81003; 85027; 90837; 99281; 99284; G0480

== ENCOUNTER 2017-01-19 19:09 | Emergency (ER) | payer OTHER ==
[~2017-01-19] VITALS: Ht 172.7 cm; Wt 109.0 kg
[2017-01-19 21:43] LABS: BASOPHIL COUNT 0.1 K/uL (0-0.1); EOSINOPHIL (%) 1.4 % (0-5); EOSINOPHIL COUNT 0.2 K/uL (0-0.3); HEMATOCRIT 47.3 % (38.0-50.0); IMMATURE GRANULOCYTE (%) 0.3 % (0.0-0.7); INSTRUMENT ABS NEUTROPHIL CT 7.5 K/uL; LYMPHOCYTE COUNT 3.2 K/uL (1.0-2.8); MCH 29.4 PG (29.0-34.0); MCV 86.3 FL (86-99); MEAN PLAT.VOLUME 11.3 uM^3 (9.0-12.4); MONOCYTE (%) 7.3 % (3-12); MONOCYTE COUNT 0.9 K/uL (0-0.8); NEUTROPHIL (%) 63.6 % (45-76); NEUTROPHIL COUNT 7.5 K/uL (1.8-6.4); PLATELET COUNT 242 K/uL (156-360); RBC DIS.WIDTH-CV 13.1 % (11.8-14.6); RBC DIS.WIDTH-SD 40.7 % (39-53); RED BLOOD COUNT 5.48 M/uL (4.00-5.50); WHITE BLOOD COUNT 11.8 K/uL (4.1-10.2)
[2017-01-19 21:53] LABS: CHLORIDE 104 mEq/L (99-109); POTASSIUM 4.2 mEq/L (3.7-5.4); SODIUM 143 mEq/L (136-147)
[2017-01-19 21:55] LABS: GLUCOSE 76 mg/dL (70-99)
[2017-01-19 21:56] LABS: ANION GAP 12 MEQ/L (2-14)
[2017-01-19 21:57] LABS: TOTAL BILIRUBIN 0.2 mg/dL (0.0-1.0)
[2017-01-19 21:58] LABS: SERUM ETHYL ALCOHOL < 10 mg/dL
[2017-01-19 21:59] LABS: GFR ESTIMATE (CALCULATED) > 59 mL/min/ (58.99-99999)
[2017-01-19 22:00] LABS: ALKALINE PHOSPHATASE 123 IU/L (3-129)
[2017-01-19 22:01] LABS: UREA NITROGEN (BUN) 10 mg/dL (9-23)
[2017-01-19 22:02] LABS: SALICYLATE < 5.0 MG/DL (15-30)
[2017-01-19 22:38] LABS: ADD MIUA? NO; BILIRUBIN NEGATIVE; BLOOD NEGATIVE; COLOR COLORLESS ((YELLOW)); GLUCOSE (STRIP) NEGATIVE; KETONES NEGATIVE; LEUKOCYTES NEGATIVE; NITRITE NEGATIVE; PROTEIN (STRIP) NEGATIVE; SPECIFIC GRAVITY 1.006 (1.000-1.030); UCUL ADDED? NO; UROBILINOGEN 0.2 MG/DL (0.2-1.0)
[2017-01-19 22:49] LABS: AMPHETAMINE NEGATIVE (500 ng/mL); BARBITURATES NEGATIVE (200 ng/mL); BENZODIAZEPINES NEGATIVE (150 ng/mL); COCAINE NEGATIVE (150 ng/mL); INTERNAL CONTROLS VALID? YES; METHADONE NEGATIVE (200 ng/mL); METHAMPHETAMINE NEGATIVE (500 ng/mL); OPIATES (MORPHINE) NEGATIVE (100 ng/mL); OXYCODONE NEGATIVE (100 ng/mL); PHENCYCLIDINE NEGATIVE (25 ng/mL); PROPOXYPHENE NEGATIVE (300 ng/mL); THC CANNABINOIDS NEGATIVE (50 ng/mL); TRICYCLIC ANTIDEPRESSANTS NEGATIVE (300 ng/mL)
[2017-01-20 12:58] VITALS: BP 135/84
== END 2017-01-20 13:04 ==
LOC: EME 19:09 → EDBD 19:09 → EME 19:09
PROVIDERS: Emergency Medicine
DX: F25.0 Schizoaffective disorder, bipolar type (principal); F70 Mild intellectual disabilities; F41.9 Anxiety disorder, unspecified; F98.8 Other specified behavioral and emotional disorders with onset usually occurring in childhood and adolescence; Z04.6 Encounter for general psychiatric examination, requested by authority
CPT/HCPCS: 80053; 81003; 85025; 90837; 99281; 99284; G0480

== ENCOUNTER 2017-01-26 18:07 | Emergency (ER) | payer OTHER ==
[~2017-01-26] VITALS: Ht 172.7 cm; Wt 113.7 kg
[2017-01-26 19:52] LABS: HEMATOCRIT 47.2 % (38.0-50.0); HEMOGLOBIN 16.2 G/DL (12.5-16.6); MCH 29.2 PG (29.0-34.0); MCHC 34.3 G/DL (30.0-36.0); MCV 85.2 FL (86-99); PLATELET COUNT 173 K/uL (156-360); RBC DIS.WIDTH-CV 12.6 % (11.8-14.6); RBC DIS.WIDTH-SD 39.1 % (39-53); RED BLOOD COUNT 5.54 M/uL (4.00-5.50); WHITE BLOOD COUNT 10.1 K/uL (4.1-10.2)
[2017-01-26 20:02] LABS: ALBUMIN 4.1 g/dL (3.2-4.8); CHLORIDE 105 mEq/L (99-109); SODIUM 137 mEq/L (136-147)
[2017-01-26 20:05] LABS: GLUCOSE 85 mg/dL (70-99); TOTAL PROTEIN 7.2 g/dL (6.4-8.3)
[2017-01-26 20:08] LABS: ALKALINE PHOSPHATASE 122 IU/L (3-129); CREATININE 0.8 mg/dL (0.6-1.3); GFR ESTIMATE (CALCULATED) > 59 mL/min/ (58.99-99999)
[2017-01-26 20:10] LABS: UREA NITROGEN (BUN) 11 mg/dL (9-23)
[2017-01-26 20:11] LABS: ALT (GPT) 39 IU/L (3-49)
[2017-01-26 20:12] LABS: LIPASE 13 U/L (1.0-51.0)
[2017-01-26 20:14] LABS: AST (GOT) 36 IU/L (2-34); POTASSIUM 3.7 mEq/L (3.7-5.4); TOTAL BILIRUBIN 0.5 mg/dL (0.0-1.0)
[2017-01-26 20:16] LABS: APPEARANCE CLEAR ((CLEAR)); BILIRUBIN NEGATIVE; BLOOD NEGATIVE; COLOR STRAW ((YELLOW)); GLUCOSE (STRIP) NEGATIVE; KETONES NEGATIVE; LEUKOCYTES NEGATIVE; NITRITE NEGATIVE; PROTEIN (STRIP) NEGATIVE; SPECIFIC GRAVITY 1.006 (1.000-1.030); UROBILINOGEN 0.2 MG/DL (0.2-1.0)
[2017-01-26 20:17] LABS: TROP-I INTERPRETATION NEGATIVE; TROPONIN-I < 0.01 ng/mL (0.0-0.30)
[2017-01-26] MEDS ORDERED: ZOFRAN4 MG PO (21:03)
[2017-01-26 21:23] VITALS: BP 122/88
== END 2017-01-26 21:24 | disposition home or self-care (01) ==
LOC: EME 18:07
PROVIDERS: Physician Assistant
DX: R11.10 Vomiting, unspecified (principal); R19.7 Diarrhea, unspecified; R07.9 Chest pain, unspecified; F32.9 Major depressive disorder, single episode, unspecified; F41.9 Anxiety disorder, unspecified
CPT/HCPCS: 71020; 80053; 80178; 81003; 83690; 84484; 85027; 93005; 99281; 99284; J7030

== ENCOUNTER 2017-01-31 18:15 | Emergency (ER) | payer OTHER ==
[~2017-01-31] VITALS: Ht 172.7 cm; Wt 112.9 kg
[~2017-01-31 18:15] MED LIST changes: +ZOFRAN4 MG PO
[2017-01-31 19:02] LABS: HEMATOCRIT 46.1 % (38.0-50.0); MCH 29.6 PG (29.0-34.0); MCHC 34.7 G/DL (30.0-36.0); MCV 85.2 FL (86-99); MEAN PLAT.VOLUME 11.4 uM^3 (9.0-12.4); RBC DIS.WIDTH-CV 12.9 % (11.8-14.6); RBC DIS.WIDTH-SD 39.8 % (39-53); RED BLOOD COUNT 5.41 M/uL (4.00-5.50); WHITE BLOOD COUNT 12.4 K/uL (4.1-10.2)
[2017-01-31 19:11] LABS: PLATELET COUNT 288 K/uL (156-360)
[2017-01-31 19:47] LABS: ANION GAP 9 MEQ/L (2-14); CHLORIDE 106 MEQ/L (99-109); POTASSIUM 3.5 MEQ/L (3.7-5.4); SAMPLE HEMOLYSIS CHECK 0; SAMPLE ICTERIC CHECK 0; SAMPLE LIPEMIA CHECK 1; SODIUM 142 MEQ/L (136-147); TOTAL BILIRUBIN 0.3 MG/DL (0.0-1.0)
[2017-01-31 20:05] LABS: ALKALINE PHOSPHATASE 114 IU/L (3-129); GFR ESTIMATE (CALCULATED) > 59 mL/min/ (58.99-99999); GLUCOSE 76 mg/dL (70-99); SERUM ETHYL ALCOHOL < 10 mg/dL; UREA NITROGEN (BUN) 7 mg/dL (9-23)
[2017-01-31 21:01] VITALS: BP 141/68
== END 2017-01-31 20:15 | disposition home or self-care (01) ==
LOC: EME 18:15
PROVIDERS: Emergency Medicine
DX: F25.0 Schizoaffective disorder, bipolar type (principal); F70 Mild intellectual disabilities; F41.9 Anxiety disorder, unspecified; F32.9 Major depressive disorder, single episode, unspecified; Z91.5 Personal history of self-harm
CPT/HCPCS: 80053; 81003; 85027; 90837; 99281; 99283; G0480

== ENCOUNTER 2017-02-02 09:55 | Emergency (ER) | payer OTHER ==
[~2017-02-02] VITALS: Ht 172.7 cm; Wt 112.2 kg
[2017-02-02 12:28] VITALS: BP 109/84
== END 2017-02-02 12:30 | disposition home or self-care (01) ==
LOC: EME 09:55
DX: F25.0 Schizoaffective disorder, bipolar type (principal); F41.9 Anxiety disorder, unspecified; F98.8 Other specified behavioral and emotional disorders with onset usually occurring in childhood and adolescence; Z91.5 Personal history of self-harm; Z88.8 Allergy status to other drugs, medicaments and biological substances
CPT/HCPCS: 90839; 99281; 99285

== ENCOUNTER 2017-02-03 14:46 | Emergency (ER) | payer OTHER ==
[~2017-02-03] VITALS: Ht 172.7 cm; Wt 112.0 kg
[2017-02-03 15:19] LABS: BASOPHIL COUNT 0.1 K/uL (0-0.1); EOSINOPHIL (%) 1.9 % (0-5); EOSINOPHIL COUNT 0.2 K/uL (0-0.3); HEMATOCRIT 46.6 % (38.0-50.0); IMMATURE GRANULOCYTE (%) 0.4 % (0.0-0.7); INSTRUMENT ABS NEUTROPHIL CT 6.2 K/uL; LYMPHOCYTE COUNT 2.7 K/uL (1.0-2.8); MCH 29.7 PG (29.0-34.0); MCHC 35.2 G/DL (30.0-36.0); MCV 84.4 FL (86-99); MEAN PLAT.VOLUME 11.3 uM^3 (9.0-12.4); MONOCYTE (%) 5.1 % (3-12); MONOCYTE COUNT 0.5 K/uL (0-0.8); NEUTROPHIL COUNT 6.2 K/uL (1.8-6.4); PLATELET COUNT 286 K/uL (156-360); RBC DIS.WIDTH-CV 12.8 % (11.8-14.6); RBC DIS.WIDTH-SD 39.4 % (39-53); RED BLOOD COUNT 5.52 M/uL (4.00-5.50); WHITE BLOOD COUNT 9.7 K/uL (4.1-10.2)
[2017-02-03 15:29] LABS: CHLORIDE 108 mEq/L (99-109); POTASSIUM 3.9 mEq/L (3.7-5.4); SODIUM 140 mEq/L (136-147)
[2017-02-03 15:32] LABS: GLUCOSE 92 mg/dL (70-99)
[2017-02-03 15:33] LABS: ANION GAP 9 MEQ/L (2-14)
[2017-02-03 15:34] LABS: TOTAL BILIRUBIN 0.4 mg/dL (0.0-1.0)
[2017-02-03 15:35] LABS: ALKALINE PHOSPHATASE 116 IU/L (3-129); GFR ESTIMATE (CALCULATED) > 59 mL/min/ (58.99-99999); SERUM ETHYL ALCOHOL < 10 mg/dL
[2017-02-03 15:37] LABS: UREA NITROGEN (BUN) 9 mg/dL (9-23)
[2017-02-03 16:07] LABS: AMPHETAMINE NEGATIVE (500 ng/mL); BARBITURATES NEGATIVE (200 ng/mL); BENZODIAZEPINES NEGATIVE (150 ng/mL); COCAINE NEGATIVE (150 ng/mL); INTERNAL CONTROLS VALID? YES; METHADONE NEGATIVE (200 ng/mL); METHAMPHETAMINE NEGATIVE (500 ng/mL); OPIATES (MORPHINE) NEGATIVE (100 ng/mL); OXYCODONE NEGATIVE (100 ng/mL); PHENCYCLIDINE NEGATIVE (25 ng/mL); PROPOXYPHENE NEGATIVE (300 ng/mL); THC CANNABINOIDS NEGATIVE (50 ng/mL); TRICYCLIC ANTIDEPRESSANTS NEGATIVE (300 ng/mL)
[2017-02-03 18:11] VITALS: BP 139/95
== END 2017-02-03 18:12 | disposition home or self-care (01) ==
LOC: EME 14:46
PROVIDERS: Emergency Medicine
DX: F43.20 Adjustment disorder, unspecified (principal); F25.9 Schizoaffective disorder, unspecified; Z04.6 Encounter for general psychiatric examination, requested by authority; F32.9 Major depressive disorder, single episode, unspecified; F41.9 Anxiety disorder, unspecified
CPT/HCPCS: 80053; 80178; 85025; 90837; 99281; 99285; G0480

== ENCOUNTER 2017-02-05 20:49 | Inpatient (IN) | payer OTHER ==
[~2017-02-05] VITALS: Ht 172.7 cm; Wt 115.3 kg
[2017-02-05 21:53] LABS: HEMATOCRIT 46.5 % (38.0-50.0); HEMOGLOBIN 15.9 G/DL (12.5-16.6); MCH 29.1 PG (29.0-34.0); MCHC 34.2 G/DL (30.0-36.0); PLATELET COUNT 266 K/uL (156-360); RBC DIS.WIDTH-CV 12.9 % (11.8-14.6); RBC DIS.WIDTH-SD 39.7 % (39-53); RED BLOOD COUNT 5.47 M/uL (4.00-5.50)
[2017-02-05 22:02] LABS: CHLORIDE 105 mEq/L (99-109); POTASSIUM 3.8 mEq/L (3.7-5.4); SODIUM 138 mEq/L (136-147)
[2017-02-05 22:03] LABS: GLUCOSE 91 mg/dL (70-99)
[2017-02-05 22:06] LABS: AMPHETAMINE NEGATIVE (500 ng/mL); BARBITURATES NEGATIVE (200 ng/mL); BENZODIAZEPINES NEGATIVE (150 ng/mL); BUPRENORPHINE NEGATIVE (10 ng/mL); COCAINE NEGATIVE (150 ng/mL); METHADONE NEGATIVE (200 ng/mL); METHAMPHETAMINE NEGATIVE (500 ng/mL); OPIATES (MORPHINE) NEGATIVE (100 ng/mL); OXYCODONE NEGATIVE (100 ng/mL); PHENCYCLIDINE NEGATIVE (25 ng/mL); PROPOXYPHENE NEGATIVE (300 ng/mL); THC CANNABINOIDS NEGATIVE (50 ng/mL); TRICYCLIC ANTIDEPRESSANTS NEGATIVE (300 ng/mL)
[2017-02-05 22:07] LABS: CREATININE 0.8 mg/dL (0.6-1.3); GFR ESTIMATE (CALCULATED) > 59 mL/min/ (58.99-99999); SERUM ETHYL ALCOHOL < 10 mg/dL
[2017-02-05 22:08] LABS: UREA NITROGEN (BUN) 12 mg/dL (9-23)
[2017-02-06] MEDS ORDERED: AMBIEN10 MG PO (01:40)
[2017-02-06] MEDS ORDERED: LITHIUM CARBON300 MG PO (01:45)
[2017-02-06] MEDS ORDERED: ABILIFY MAINTE300 M1 IM (01:50)
[2017-02-06 02:38] VITALS: BP 139/82
[2017-02-06 07:28] VITALS: BP 117/57
[2017-02-06 15:40] VITALS: BP 124/58
[2017-02-07 08:04] VITALS: BP 119/58
[2017-02-07 15:34] VITALS: BP 141/68
[2017-02-08 07:42] VITALS: BP 146/67
[2017-02-08] MEDS ORDERED: RISPERDAL2 MG PO (09:07)
[2017-02-08] MEDS ORDERED: LITHIUM CARBON300 MG PO (09:09)
[2017-02-08] MEDS ORDERED: AMBIEN10 MG PO (10:24)
== END 2017-02-08 10:32 | disposition home or self-care (01) | DRG 885 ==
LOC: EME 20:49 → EDOF 23:59 → 1WEST 23:59 → ENRESERV 02-06 00:28 → 1WEST 02-06 01:12
DX: F25.0 Schizoaffective disorder, bipolar type (principal); F70 Mild intellectual disabilities; R45.851 Suicidal ideations; R45.850 Homicidal ideations
CPT/HCPCS: 80048; 80178; 85027; 90837; 97150 GO; 97165 GO; 99281; 99285; G0480; J2794

== ENCOUNTER 2017-02-10 18:47 | Emergency (ER) | payer OTHER ==
[~2017-02-10] VITALS: Ht 172.7 cm; Wt 112.8 kg
[~2017-02-10 18:47] MED LIST changes: +ABILIFY MAINTE300 M1 IM; +AMBIEN10 MG PO; +RISPERDAL2 MG PO
[2017-02-10 21:16] VITALS: BP 137/74
== END 2017-02-10 21:18 | disposition home or self-care (01) ==
LOC: EME 18:47
DX: T42.6X1A Poisoning by other antiepileptic and sedative-hypnotic drugs, accidental (unintentional), initial encounter (principal); T43.591A Poisoning by other antipsychotics and neuroleptics, accidental (unintentional), initial encounter; T38.891A Poisoning by other hormones and synthetic substitutes, accidental (unintentional), initial encounter; F31.9 Bipolar disorder, unspecified; F41.9 Anxiety disorder, unspecified
CPT/HCPCS: 99281; 99284

== ENCOUNTER 2017-02-11 17:31 | Emergency (ER) | payer OTHER ==
[~2017-02-11] VITALS: Ht 172.7 cm; Wt 113.3 kg
[2017-02-11 18:02] VITALS: BP 146/99
== END 2017-02-11 18:30 | disposition left against medical advice (07) ==
LOC: EME 17:31
DX: R21 Rash and other nonspecific skin eruption (principal); Z53.21 Procedure and treatment not carried out due to patient leaving prior to being seen by health care provider

== ENCOUNTER 2017-02-17 09:57 | Emergency (ER) | payer OTHER ==
[~2017-02-17] VITALS: Ht 175.3 cm; Wt 114.6 kg
[2017-02-17 14:12] VITALS: BP 138/86
== END 2017-02-17 14:13 | disposition home or self-care (01) ==
LOC: EME 09:57
DX: N50.82 Scrotal pain (principal); Z88.8 Allergy status to other drugs, medicaments and biological substances
CPT/HCPCS: 76870; 99281; 99284

== ENCOUNTER 2017-02-19 20:16 | Emergency (ER) | payer OTHER ==
[~2017-02-19] VITALS: Ht 172.7 cm; Wt 111.1 kg
[2017-02-19 22:20] VITALS: BP 136/87
== END 2017-02-19 22:24 | disposition home or self-care (01) ==
LOC: EME 20:16
DX: F25.0 Schizoaffective disorder, bipolar type (principal); F70 Mild intellectual disabilities; Z04.6 Encounter for general psychiatric examination, requested by authority; F32.9 Major depressive disorder, single episode, unspecified; F41.9 Anxiety disorder, unspecified
CPT/HCPCS: 90837

== ENCOUNTER 2017-03-01 20:29 | Emergency (ER) | payer OTHER ==
[~2017-03-01] VITALS: Ht 175.3 cm; Wt 112.7 kg
[2017-03-01 21:11] LABS: HEMATOCRIT 45.8 % (38.0-50.0); HEMOGLOBIN 16.3 G/DL (12.5-16.6); MCH 29.9 PG (29.0-34.0); MCHC 35.6 G/DL (30.0-36.0); MCV 83.9 FL (86-99); PLATELET COUNT 246 K/uL (156-360); RBC DIS.WIDTH-CV 12.7 % (11.8-14.6); RBC DIS.WIDTH-SD 38.3 % (39-53); RED BLOOD COUNT 5.46 M/uL (4.00-5.50); WHITE BLOOD COUNT 12.5 K/uL (4.1-10.2)
[2017-03-01 21:24] LABS: ALBUMIN 4.3 g/dL (3.2-4.8); CHLORIDE 107 mEq/L (99-109); SODIUM 139 mEq/L (136-147)
[2017-03-01 21:27] LABS: GLUCOSE 90 mg/dL (70-99); TOTAL PROTEIN 6.9 g/dL (6.4-8.3)
[2017-03-01 21:29] LABS: TOTAL BILIRUBIN 0.3 mg/dL (0.0-1.0)
[2017-03-01 21:30] LABS: ALKALINE PHOSPHATASE 116 IU/L (3-129); CREATININE 0.9 mg/dL (0.6-1.3); GFR ESTIMATE (CALCULATED) > 59 mL/min/ (58.99-99999); SERUM ETHYL ALCOHOL < 10 mg/dL
[2017-03-01 21:32] LABS: AST (GOT) 22 IU/L (2-34); UREA NITROGEN (BUN) 9 mg/dL (9-23)
[2017-03-01 21:33] LABS: ACETAMINOPHEN (TYLENOL) < 10 mcg/mL (10-30); ALT (GPT) 25 IU/L (3-49)
[2017-03-01 22:28] VITALS: BP 122/77
== END 2017-03-01 22:35 | disposition home or self-care (01) ==
LOC: EME → EDBD 20:29 → EME 20:29
PROVIDERS: Emergency Medicine
DX: F32.9 Major depressive disorder, single episode, unspecified (principal); F25.0 Schizoaffective disorder, bipolar type; F70 Mild intellectual disabilities; F41.9 Anxiety disorder, unspecified; Z91.5 Personal history of self-harm; Z88.8 Allergy status to other drugs, medicaments and biological substances
CPT/HCPCS: 80053; 80178; 81003; 85027; 90837; 99281; 99285; G0480

== ENCOUNTER 2017-03-02 15:32 | Emergency (ER) | payer OTHER ==
[~2017-03-02] VITALS: Ht 172.7 cm; Wt 113.6 kg
[2017-03-02 16:06] LABS: BASOPHIL (%) 0.4 % (0-1); EOSINOPHIL (%) 1.7 % (0-5); EOSINOPHIL COUNT 0.2 K/uL (0-0.3); HEMATOCRIT 46.7 % (38.0-50.0); HEMOGLOBIN 16.3 G/DL (12.5-16.6); IMMATURE GRANULOCYTE (%) 0.3 % (0.0-0.7); LYMPHOCYTE (%) 23.4 % (15-42); LYMPHOCYTE COUNT 2.5 K/uL (1.0-2.8); MCH 29.3 PG (29.0-34.0); MCHC 34.9 G/DL (30.0-36.0); MONOCYTE (%) 6.2 % (3-12); MONOCYTE COUNT 0.7 K/uL (0-0.8); NEUTROPHIL COUNT 7.3 K/uL (1.8-6.4); PLATELET COUNT 222 K/uL (156-360); RBC DIS.WIDTH-CV 12.7 % (11.8-14.6); RBC DIS.WIDTH-SD 39.4 % (39-53); RED BLOOD COUNT 5.56 M/uL (4.00-5.50); WHITE BLOOD COUNT 10.7 K/uL (4.1-10.2)
[2017-03-02 16:18] LABS: ALBUMIN 4.4 g/dL (3.2-4.8); CHLORIDE 107 mEq/L (99-109); POTASSIUM 3.6 mEq/L (3.7-5.4); SODIUM 139 mEq/L (136-147)
[2017-03-02 16:21] LABS: APPEARANCE CLEAR ((CLEAR)); BILIRUBIN NEGATIVE; BLOOD NEGATIVE; COLOR YELLOW ((YELLOW)); GLUCOSE (STRIP) NEGATIVE; KETONES NEGATIVE; LEUKOCYTES NEGATIVE; NITRITE NEGATIVE; PROTEIN (STRIP) NEGATIVE; SPECIFIC GRAVITY 1.019 (1.000-1.030); UCUL ADDED? NO; UROBILINOGEN 0.2 MG/DL (0.2-1.0)
[2017-03-02 16:21] LABS: GLUCOSE 103 mg/dL (70-99); TOTAL PROTEIN 6.9 g/dL (6.4-8.3)
[2017-03-02 16:23] LABS: TOTAL BILIRUBIN 0.4 mg/dL (0.0-1.0)
[2017-03-02 16:24] LABS: SERUM ETHYL ALCOHOL < 10 mg/dL
[2017-03-02 16:25] LABS: ALKALINE PHOSPHATASE 118 IU/L (3-129); GFR ESTIMATE (CALCULATED) > 59 mL/min/ (58.99-99999)
[2017-03-02 16:26] LABS: AST (GOT) 28 IU/L (2-34); UREA NITROGEN (BUN) 10 mg/dL (9-23)
[2017-03-02 16:28] LABS: ACETAMINOPHEN (TYLENOL) < 10 mcg/mL (10-30); ALT (GPT) 29 IU/L (3-49); SALICYLATE < 5.0 MG/DL (15-30)
[2017-03-02 16:28] LABS: AMPHETAMINE NEGATIVE (500 ng/mL); BARBITURATES NEGATIVE (200 ng/mL); BENZODIAZEPINES NEGATIVE (150 ng/mL); BUPRENORPHINE NEGATIVE (10 ng/mL); COCAINE NEGATIVE (150 ng/mL); METHADONE NEGATIVE (200 ng/mL); METHAMPHETAMINE NEGATIVE (500 ng/mL); OPIATES (MORPHINE) NEGATIVE (100 ng/mL); OXYCODONE NEGATIVE (100 ng/mL); PHENCYCLIDINE NEGATIVE (25 ng/mL); PROPOXYPHENE NEGATIVE (300 ng/mL); THC CANNABINOIDS NEGATIVE (50 ng/mL); TRICYCLIC ANTIDEPRESSANTS NEGATIVE (300 ng/mL)
[2017-03-02 17:04] VITALS: BP 132/78
== END 2017-03-02 17:05 | disposition home or self-care (01) ==
LOC: EME 15:32
PROVIDERS: Emergency Medicine
DX: F25.0 Schizoaffective disorder, bipolar type (principal); F70 Mild intellectual disabilities; Z04.6 Encounter for general psychiatric examination, requested by authority; F41.9 Anxiety disorder, unspecified; F91.3 Oppositional defiant disorder
CPT/HCPCS: 80053; 81003; 85025; 90837; G0480

== ENCOUNTER 2017-03-04 21:33 | Emergency (ER) | payer OTHER ==
[~2017-03-04] VITALS: Ht 172.7 cm; Wt 111.1 kg
[2017-03-04 23:01] VITALS: BP 130/70
== END 2017-03-04 23:02 | disposition home or self-care (01) ==
LOC: EME 21:33
DX: F25.0 Schizoaffective disorder, bipolar type (principal); Z04.6 Encounter for general psychiatric examination, requested by authority; F41.9 Anxiety disorder, unspecified
CPT/HCPCS: 90837

== ENCOUNTER 2017-03-05 23:48 | Emergency (ER) | payer OTHER ==
[~2017-03-05] VITALS: Ht 172.7 cm; Wt 114.8 kg
[2017-03-06] MEDS ORDERED: PROVENTIL HFA6.7 GM IH (02:10)
[2017-03-06 02:40] VITALS: BP 150/88
== END 2017-03-06 02:40 | disposition home or self-care (01) ==
LOC: EME 23:48 → EXP 23:48
PROVIDERS: Emergency Medicine
DX: J20.9 Acute bronchitis, unspecified (principal); J06.9 Acute upper respiratory infection, unspecified; F41.9 Anxiety disorder, unspecified; F32.9 Major depressive disorder, single episode, unspecified; F31.9 Bipolar disorder, unspecified
CPT/HCPCS: 71046; 87502; 87651 90; 93005; 94640

== ENCOUNTER 2017-03-09 18:07 | Emergency (ER) | payer OTHER ==
[~2017-03-09] VITALS: Ht 172.7 cm; Wt 114.4 kg
[~2017-03-09 18:07] MED LIST changes: +PROVENTIL HFA6.7 GM IH
[2017-03-09 18:55] LABS: HEMATOCRIT 47.5 % (38.0-50.0); HEMOGLOBIN 16.5 G/DL (12.5-16.6); MCH 29.4 PG (29.0-34.0); MCHC 34.7 G/DL (30.0-36.0); MCV 84.7 FL (86-99); PLATELET COUNT 242 K/uL (156-360); RBC DIS.WIDTH-CV 12.8 % (11.8-14.6); RBC DIS.WIDTH-SD 39.2 % (39-53); RED BLOOD COUNT 5.61 M/uL (4.00-5.50); WHITE BLOOD COUNT 12.7 K/uL (4.1-10.2)
[2017-03-09 19:10] LABS: ALBUMIN 4.4 g/dL (3.2-4.8); CHLORIDE 104 mEq/L (99-109); POTASSIUM 4.1 mEq/L (3.7-5.4); SODIUM 137 mEq/L (136-147)
[2017-03-09 19:12] LABS: GLUCOSE 81 mg/dL (70-99)
[2017-03-09 19:13] LABS: TOTAL PROTEIN 7.3 g/dL (6.4-8.3)
[2017-03-09 19:14] LABS: TOTAL BILIRUBIN 0.3 mg/dL (0.0-1.0)
[2017-03-09 19:15] LABS: SERUM ETHYL ALCOHOL < 10 mg/dL
[2017-03-09 19:16] LABS: ALKALINE PHOSPHATASE 136 IU/L (3-129); CREATININE 0.9 mg/dL (0.6-1.3); GFR ESTIMATE (CALCULATED) > 59 mL/min/ (58.99-99999)
[2017-03-09 19:17] LABS: UREA NITROGEN (BUN) 14 mg/dL (9-23)
[2017-03-09 19:18] LABS: AST (GOT) 21 IU/L (2-34)
[2017-03-09 19:19] LABS: ALT (GPT) 19 IU/L (3-49)
[2017-03-09 20:55] VITALS: BP 110/68
== END 2017-03-09 21:00 | disposition home or self-care (01) ==
LOC: EME 18:07
PROVIDERS: Emergency Medicine
DX: F32.9 Major depressive disorder, single episode, unspecified (principal); F25.0 Schizoaffective disorder, bipolar type; F70 Mild intellectual disabilities; Z04.6 Encounter for general psychiatric examination, requested by authority; F41.9 Anxiety disorder, unspecified
CPT/HCPCS: 80053; 85027; 90837; 99281; 99285; G0480

== ENCOUNTER 2017-03-11 20:26 | Emergency (ER) | payer OTHER ==
[~2017-03-11] VITALS: Ht 175.3 cm; Wt 133.4 kg
[2017-03-12 00:47] VITALS: BP 126/76
== END 2017-03-12 00:48 | disposition home or self-care (01) ==
LOC: EME 20:26
DX: K62.5 Hemorrhage of anus and rectum (principal); Z88.8 Allergy status to other drugs, medicaments and biological substances
CPT/HCPCS: 99281; 99284

== ENCOUNTER 2017-03-18 19:57 | Emergency (ER) | payer OTHER ==
[~2017-03-18] VITALS: Ht 175.3 cm; Wt 109.3 kg
[2017-03-18 22:26] VITALS: BP 136/74
== END 2017-03-18 22:30 | disposition home or self-care (01) ==
LOC: EME 19:57
DX: R45.851 Suicidal ideations (principal); F41.9 Anxiety disorder, unspecified; F32.9 Major depressive disorder, single episode, unspecified; F91.3 Oppositional defiant disorder; F98.8 Other specified behavioral and emotional disorders with onset usually occurring in childhood and adolescence; Z91.5 Personal history of self-harm; Z88.8 Allergy status to other drugs, medicaments and biological substances
CPT/HCPCS: 90837; 99281; 99284

== ENCOUNTER 2017-03-23 19:00 | Inpatient (IN) | payer OTHER ==
[~2017-03-23] VITALS: Ht 175.3 cm; Wt 111.9 kg
[2017-03-23 19:45] LABS: HEMOGLOBIN 17.1 G/DL (12.5-16.6); MCH 29.8 PG (29.0-34.0); MCHC 35.6 G/DL (30.0-36.0); MCV 83.6 FL (86-99); PLATELET COUNT 238 K/uL (156-360); RBC DIS.WIDTH-CV 12.7 % (11.8-14.6); RBC DIS.WIDTH-SD 38.6 % (39-53); RED BLOOD COUNT 5.74 M/uL (4.00-5.50)
[2017-03-23 19:53] LABS: CHLORIDE 106 mEq/L (99-109); POTASSIUM 3.7 mEq/L (3.7-5.4); SODIUM 140 mEq/L (136-147)
[2017-03-23 19:55] LABS: GLUCOSE 113 mg/dL (70-99)
[2017-03-23 19:58] LABS: SERUM ETHYL ALCOHOL < 10 mg/dL
[2017-03-23 19:59] LABS: GFR ESTIMATE (CALCULATED) > 59 mL/min/ (58.99-99999)
[2017-03-23 20:01] LABS: UREA NITROGEN (BUN) 15 mg/dL (9-23)
[2017-03-23 20:02] LABS: ACETAMINOPHEN (TYLENOL) < 10 mcg/mL (10-30); SALICYLATE < 5.0 MG/DL (15-30)
[2017-03-23 20:14] LABS: AMPHETAMINE NEGATIVE (500 ng/mL); BARBITURATES NEGATIVE (200 ng/mL); BENZODIAZEPINES NEGATIVE (150 ng/mL); BUPRENORPHINE NEGATIVE (10 ng/mL); COCAINE NEGATIVE (150 ng/mL); METHADONE NEGATIVE (200 ng/mL); METHAMPHETAMINE NEGATIVE (500 ng/mL); OPIATES (MORPHINE) NEGATIVE (100 ng/mL); OXYCODONE NEGATIVE (100 ng/mL); PHENCYCLIDINE NEGATIVE (25 ng/mL); PROPOXYPHENE NEGATIVE (300 ng/mL); THC CANNABINOIDS NEGATIVE (50 ng/mL); TRICYCLIC ANTIDEPRESSANTS NEGATIVE (300 ng/mL)
[2017-03-23 22:40] VITALS: BP 132/77
[2017-03-24 07:42] VITALS: BP 118/59
[2017-03-24 15:40] VITALS: BP 147/70
[2017-03-25 07:58] VITALS: BP 130/65
[2017-03-25 15:34] VITALS: BP 125/78
[2017-03-26 07:35] VITALS: BP 110/55
[2017-03-26] MEDS ORDERED: LITHIUM CARBON300 MG PO (08:53)
[2017-03-26] MEDS ORDERED: PROVENTIL HFA6.7 GM IH (08:53)
[2017-03-26] MEDS ORDERED: RISPERDAL2 MG PO (08:53)
== END 2017-03-26 11:30 | disposition home or self-care (01) | DRG 885 ==
LOC: EME 19:00 → ENRESERV 22:13 → 1WEST 22:20 → EDOF 22:20 → 1WEST 22:20
PROVIDERS: Emergency Medicine
DX: F25.0 Schizoaffective disorder, bipolar type (principal); F70 Mild intellectual disabilities; R45.851 Suicidal ideations; Z91.14 Patient's other noncompliance with medication regimen; G47.00 Insomnia, unspecified; F41.9 Anxiety disorder, unspecified
CPT/HCPCS: 80048; 80178; 85027; 90837; 97150 GO; 97165 GO; 99281; 99285; G0480

== ENCOUNTER 2017-04-04 19:32 | Emergency (ER) | payer OTHER ==
[~2017-04-04] VITALS: Ht 175.3 cm; Wt 116.0 kg
[2017-04-04 20:12] LABS: BASOPHIL (%) 0.4 % (0-1); BASOPHIL COUNT 0.1 K/uL (0-0.1); EOSINOPHIL (%) 1.2 % (0-5); EOSINOPHIL COUNT 0.2 K/uL (0-0.3); HEMATOCRIT 48.5 % (38.0-50.0); IMMATURE GRANULOCYTE (%) 0.5 % (0.0-0.7); LYMPHOCYTE (%) 22.7 % (15-42); MCH 29.2 PG (29.0-34.0); MCHC 35.1 G/DL (30.0-36.0); MCV 83.3 FL (86-99); MONOCYTE (%) 6.5 % (3-12); MONOCYTE COUNT 0.9 K/uL (0-0.8); NEUTROPHIL (%) 68.7 % (45-76); NEUTROPHIL COUNT 9.1 K/uL (1.8-6.4); PLATELET COUNT 204 K/uL (156-360); RBC DIS.WIDTH-CV 12.7 % (11.8-14.6); RBC DIS.WIDTH-SD 38.5 % (39-53); RED BLOOD COUNT 5.82 M/uL (4.00-5.50); WHITE BLOOD COUNT 13.2 K/uL (4.1-10.2)
[2017-04-04 20:27] LABS: ALBUMIN 4.3 g/dL (3.2-4.8); CHLORIDE 104 mEq/L (99-109); POTASSIUM 3.8 mEq/L (3.7-5.4); SODIUM 138 mEq/L (136-147)
[2017-04-04 20:30] LABS: GLUCOSE 124 mg/dL (70-99); TOTAL PROTEIN 7.6 g/dL (6.4-8.3)
[2017-04-04 20:32] LABS: TOTAL BILIRUBIN 0.3 mg/dL (0.0-1.0)
[2017-04-04 20:33] LABS: GFR ESTIMATE (CALCULATED) > 59 mL/min/ (58.99-99999); SERUM ETHYL ALCOHOL < 10 mg/dL
[2017-04-04 20:34] LABS: ALKALINE PHOSPHATASE 146 IU/L (3-129)
[2017-04-04 20:35] LABS: AST (GOT) 25 IU/L (2-34); UREA NITROGEN (BUN) 15 mg/dL (9-23)
[2017-04-04 20:37] LABS: ACETAMINOPHEN (TYLENOL) < 10 mcg/mL (10-30); ALT (GPT) 25 IU/L (3-49); SALICYLATE < 5.0 MG/DL (15-30)
[2017-04-04 20:59] LABS: AMPHETAMINE NEGATIVE (500 ng/mL); BARBITURATES NEGATIVE (200 ng/mL); BENZODIAZEPINES NEGATIVE (150 ng/mL); BUPRENORPHINE NEGATIVE (10 ng/mL); COCAINE NEGATIVE (150 ng/mL); METHADONE NEGATIVE (200 ng/mL); METHAMPHETAMINE NEGATIVE (500 ng/mL); OPIATES (MORPHINE) NEGATIVE (100 ng/mL); OXYCODONE NEGATIVE (100 ng/mL); PHENCYCLIDINE NEGATIVE (25 ng/mL); PROPOXYPHENE NEGATIVE (300 ng/mL); THC CANNABINOIDS NEGATIVE (50 ng/mL); TRICYCLIC ANTIDEPRESSANTS PRESUMPTIVE POSITIVE (300 ng/mL)
[2017-04-04 21:19] VITALS: BP 173/92
== END 2017-04-04 21:21 | disposition home or self-care (01) ==
LOC: EME → EDBD 19:32 → EME 21:21
PROVIDERS: Emergency Medicine
DX: F25.9 Schizoaffective disorder, unspecified (principal); F31.9 Bipolar disorder, unspecified; F91.3 Oppositional defiant disorder; F98.8 Other specified behavioral and emotional disorders with onset usually occurring in childhood and adolescence; Z79.52 Long term (current) use of systemic steroids; Z91.5 Personal history of self-harm
CPT/HCPCS: 80053; 80178; 85025; 90837; 99281; 99285; G0480

== ENCOUNTER 2017-04-05 10:10 | Emergency (ER) | payer OTHER ==
[~2017-04-05] VITALS: Ht 172.7 cm; Wt 119.0 kg
[2017-04-05 10:19] VITALS: BP 130/97
[2017-04-06] MEDS ORDERED: DESYREL100 MG PO (21:06)
== END 2017-04-05 11:49 | disposition left against medical advice (07) ==
LOC: EME 10:10 → ENRESERV 04-06 20:13 → CANRESERV 04-06 20:13
DX: R45.851 Suicidal ideations (principal); F32.9 Major depressive disorder, single episode, unspecified; Z53.21 Procedure and treatment not carried out due to patient leaving prior to being seen by health care provider

== ENCOUNTER 2017-04-06 16:55 | Inpatient (IN) | payer OTHER ==
[~2017-04-06] VITALS: Ht 172.7 cm; Wt 113.6 kg
[2017-04-06 18:24] LABS: MCH 29.1 PG (29.0-34.0); MCHC 34.8 G/DL (30.0-36.0); MCV 83.6 FL (86-99); PLATELET COUNT 206 K/uL (156-360); RBC DIS.WIDTH-CV 12.7 % (11.8-14.6); RBC DIS.WIDTH-SD 38.7 % (39-53); WHITE BLOOD COUNT 12.1 K/uL (4.1-10.2)
[2017-04-06 18:28] LABS: APPEARANCE CLEAR ((CLEAR)); BILIRUBIN NEGATIVE; BLOOD NEGATIVE; COLOR YELLOW ((YELLOW)); GLUCOSE (STRIP) NEGATIVE; KETONES NEGATIVE; LEUKOCYTES NEGATIVE; NITRITE NEGATIVE; PROTEIN (STRIP) NEGATIVE; SPECIFIC GRAVITY 1.025 (1.000-1.030); UCUL ADDED? NO; UROBILINOGEN 0.2 MG/DL (0.2-1.0)
[2017-04-06 18:33] LABS: CHLORIDE 109 mEq/L (99-109); POTASSIUM 4.2 mEq/L (3.7-5.4); SODIUM 139 mEq/L (136-147)
[2017-04-06 18:37] LABS: GLUCOSE 92 mg/dL (70-99)
[2017-04-06 18:37] LABS: AMPHETAMINE NEGATIVE (500 ng/mL); BARBITURATES NEGATIVE (200 ng/mL); BENZODIAZEPINES NEGATIVE (150 ng/mL); BUPRENORPHINE NEGATIVE (10 ng/mL); COCAINE NEGATIVE (150 ng/mL); METHADONE NEGATIVE (200 ng/mL); METHAMPHETAMINE NEGATIVE (500 ng/mL); OPIATES (MORPHINE) NEGATIVE (100 ng/mL); OXYCODONE NEGATIVE (100 ng/mL); PHENCYCLIDINE NEGATIVE (25 ng/mL); PROPOXYPHENE NEGATIVE (300 ng/mL); THC CANNABINOIDS NEGATIVE (50 ng/mL); TRICYCLIC ANTIDEPRESSANTS NEGATIVE (300 ng/mL)
[2017-04-06 18:38] LABS: SERUM ETHYL ALCOHOL < 10 mg/dL
[2017-04-06 18:39] LABS: GFR ESTIMATE (CALCULATED) > 59 mL/min/ (58.99-99999)
[2017-04-06 18:40] LABS: UREA NITROGEN (BUN) 14 mg/dL (9-23)
[2017-04-06 20:44] VITALS: BP 133/84
[2017-04-06] MEDS ORDERED: DESYREL100 MG PO (21:06)
[2017-04-07 07:30] VITALS: BP 131/80
[2017-04-07 15:36] VITALS: BP 115/56
[2017-04-08 07:44] VITALS: BP 121/60
[2017-04-08] MEDS ORDERED: DESYREL100 MG PO (09:15)
[2017-04-08] MEDS ORDERED: DIVALPROEX SOD500 M1 PO (09:15)
[2017-04-08] MEDS ORDERED: RISPERDAL2 MG PO (09:15)
== END 2017-04-08 10:23 | disposition home or self-care (01) | DRG 885 ==
LOC: EME 16:55 → 1WEST 19:07 → EDOF 19:07 → 1WEST 20:22
PROVIDERS: Emergency Medicine
DX: F25.0 Schizoaffective disorder, bipolar type (principal); R45.850 Homicidal ideations; R45.851 Suicidal ideations; R41.89 Other symptoms and signs involving cognitive functions and awareness; E66.01 Morbid (severe) obesity due to excess calories; Z91.14 Patient's other noncompliance with medication regimen; Z68.38 Body mass index [BMI] 38.0-38.9, adult
CPT/HCPCS: 80048; 80053; 80178; 81003; 85025; 85027; 90837; 99202; 99281; 99284; 99285; G0480

== ENCOUNTER 2017-04-10 20:29 | Emergency (ER) | payer OTHER ==
[~2017-04-10] VITALS: Ht 172.7 cm; Wt 115.4 kg
[~2017-04-10 20:29] MED LIST changes: +DESYREL100 MG PO; +DIVALPROEX SOD500 M1 PO
[2017-04-10 23:52] LABS: HEMATOCRIT 46.8 % (38.0-50.0); HEMOGLOBIN 16.3 G/DL (12.5-16.6); MCH 28.9 PG (29.0-34.0); MCHC 34.8 G/DL (30.0-36.0); PLATELET COUNT 212 K/uL (156-360); RBC DIS.WIDTH-CV 12.6 % (11.8-14.6); RBC DIS.WIDTH-SD 37.9 % (39-53); RED BLOOD COUNT 5.64 M/uL (4.00-5.50); WHITE BLOOD COUNT 13.1 K/uL (4.1-10.2)
[2017-04-10 23:59] LABS: CHLORIDE 106 mEq/L (99-109); POTASSIUM 3.7 mEq/L (3.7-5.4); SODIUM 139 mEq/L (136-147)
[2017-04-11 00:01] LABS: GLUCOSE 89 mg/dL (70-99)
[2017-04-11 00:05] LABS: CREATININE 0.8 mg/dL (0.6-1.3); GFR ESTIMATE (CALCULATED) > 59 mL/min/ (58.99-99999)
[2017-04-11 00:06] LABS: UREA NITROGEN (BUN) 14 mg/dL (9-23)
[2017-04-11 00:07] LABS: CREATINE KINASE 329 IU/L (1-294); TOTAL CK 329 IU/L (1-294)
[2017-04-11 00:14] LABS: CK-MB 2.2 ng/mL (0.0-4.9); CKMB RELATIVE INDEX 0.7 (0.0-3.9)
[2017-04-11 00:55] VITALS: BP 132/88
== END 2017-04-11 00:56 | disposition home or self-care (01) ==
LOC: EME 20:29
PROVIDERS: Emergency Medicine
DX: R51 Headache (principal); E86.0 Dehydration; F31.9 Bipolar disorder, unspecified; F91.3 Oppositional defiant disorder; F98.8 Other specified behavioral and emotional disorders with onset usually occurring in childhood and adolescence; Z91.5 Personal history of self-harm; Z88.8 Allergy status to other drugs, medicaments and biological substances
CPT/HCPCS: 80048; 81003; 82550; 82553; 85027; 99281; 99284

== ENCOUNTER 2017-05-09 13:22 | Emergency (ER) | payer OTHER ==
[~2017-05-09] VITALS: Ht 172.7 cm; Wt 115.9 kg
[2017-05-09 14:13] LABS: HEMATOCRIT 46.7 % (38.0-50.0); HEMOGLOBIN 16.7 G/DL (12.5-16.6); MCH 29.3 PG (29.0-34.0); MCHC 35.8 G/DL (30.0-36.0); MCV 82.1 FL (86-99); PLATELET COUNT 227 K/uL (156-360); RBC DIS.WIDTH-CV 13.2 % (11.8-14.6); RBC DIS.WIDTH-SD 39.2 % (39-53); RED BLOOD COUNT 5.69 M/uL (4.00-5.50); WHITE BLOOD COUNT 10.5 K/uL (4.1-10.2)
[2017-05-09 14:23] LABS: CHLORIDE 107 mEq/L (99-109); POTASSIUM 4.2 mEq/L (3.7-5.4); SODIUM 143 mEq/L (136-147)
[2017-05-09 14:24] LABS: GLUCOSE 86 mg/dL (70-99)
[2017-05-09 14:28] LABS: CREATININE 0.8 mg/dL (0.6-1.3); GFR ESTIMATE (CALCULATED) > 59 mL/min/ (58.99-99999); SERUM ETHYL ALCOHOL < 10 mg/dL
[2017-05-09 14:29] LABS: UREA NITROGEN (BUN) 13 mg/dL (9-23)
[2017-05-09 15:04] VITALS: BP 144/72
[2017-05-09] MEDS ORDERED: BENZTROPINE MESY1 MG PO (23:02)
[2017-05-09] MEDS ORDERED: SEROQUEL200 MG PO ×2 (23:03)
[2017-05-09] MEDS ORDERED: DEPAKOTE ER500 MG PO (23:04)
[2017-05-09] MEDS ORDERED: DESYREL100 MG PO (23:05)
[2017-05-09] MEDS ORDERED: RISPERDAL2 MG PO (23:05)
[2017-05-09] MEDS ORDERED: ABILIFY MAINTE400 M1 IM (23:06)
== END 2017-05-09 15:07 | disposition home or self-care (01) ==
LOC: EME 13:22
PROVIDERS: Emergency Medicine Emergency Medical Services
DX: F32.9 Major depressive disorder, single episode, unspecified (principal); R45.6 Violent behavior; F31.9 Bipolar disorder, unspecified; F91.3 Oppositional defiant disorder; F98.8 Other specified behavioral and emotional disorders with onset usually occurring in childhood and adolescence; Z91.5 Personal history of self-harm; Z88.8 Allergy status to other drugs, medicaments and biological substances
CPT/HCPCS: 80048; 85027; 90837; 99281; 99285; G0480

== ENCOUNTER 2017-05-09 19:00 | Observation (INO) | payer OTHER ==
[~2017-05-09] VITALS: Ht 172.7 cm; Wt 117.5 kg
[2017-05-09 20:25] LABS: HEMATOCRIT 45.6 % (38.0-50.0); HEMOGLOBIN 16.4 G/DL (12.5-16.6); MCH 29.4 PG (29.0-34.0); MCV 81.9 FL (86-99); PLATELET COUNT 229 K/uL (156-360); RBC DIS.WIDTH-CV 13.2 % (11.8-14.6); RBC DIS.WIDTH-SD 39.1 % (39-53); RED BLOOD COUNT 5.57 M/uL (4.00-5.50)
[2017-05-09 20:33] LABS: CHLORIDE 107 mEq/L (99-109); POTASSIUM 4.1 mEq/L (3.7-5.4); SODIUM 143 mEq/L (136-147)
[2017-05-09 20:35] LABS: GLUCOSE 90 mg/dL (70-99)
[2017-05-09 20:38] LABS: SERUM ETHYL ALCOHOL < 10 mg/dL
[2017-05-09 20:39] LABS: CREATININE 0.9 mg/dL (0.6-1.3); GFR ESTIMATE (CALCULATED) > 59 mL/min/ (58.99-99999)
[2017-05-09 20:40] LABS: AMPHETAMINE NEGATIVE (500 ng/mL); BARBITURATES NEGATIVE (200 ng/mL); BENZODIAZEPINES NEGATIVE (150 ng/mL); BUPRENORPHINE NEGATIVE (10 ng/mL); COCAINE NEGATIVE (150 ng/mL); METHADONE NEGATIVE (200 ng/mL); METHAMPHETAMINE NEGATIVE (500 ng/mL); OPIATES (MORPHINE) NEGATIVE (100 ng/mL); OXYCODONE NEGATIVE (100 ng/mL); PHENCYCLIDINE NEGATIVE (25 ng/mL); PROPOXYPHENE NEGATIVE (300 ng/mL); THC CANNABINOIDS NEGATIVE (50 ng/mL); TRICYCLIC ANTIDEPRESSANTS NEGATIVE (300 ng/mL)
[2017-05-09 20:41] LABS: UREA NITROGEN (BUN) 14 mg/dL (9-23)
[2017-05-09 20:42] LABS: SALICYLATE < 5.0 MG/DL (15-30)
[2017-05-09 20:43] LABS: ACETAMINOPHEN (TYLENOL) < 10 mcg/mL (10-30)
[2017-05-09 21:37] LABS: THYROTROPIN (TSH) 1.4 MIU/L (0.4-5.5)
[2017-05-09] MEDS ORDERED: BENZTROPINE MESY1 MG PO (23:02)
[2017-05-09] MEDS ORDERED: SEROQUEL200 MG PO ×2 (23:03)
[2017-05-09] MEDS ORDERED: DEPAKOTE ER500 MG PO (23:04)
[2017-05-09] MEDS ORDERED: RISPERDAL2 MG PO (23:05)
[2017-05-09] MEDS ORDERED: DESYREL100 MG PO (23:05)
[2017-05-09] MEDS ORDERED: ABILIFY MAINTE400 M1 IM (23:06)
[2017-05-10 00:43] VITALS: BP 137/70
[2017-05-10 02:08] LABS: APPEARANCE CLEAR ((CLEAR)); BILIRUBIN NEGATIVE; BLOOD NEGATIVE; COLOR COLORLESS ((YELLOW)); GLUCOSE (STRIP) NEGATIVE; KETONES NEGATIVE; LEUKOCYTES NEGATIVE; NITRITE NEGATIVE; PROTEIN (STRIP) NEGATIVE; SPECIFIC GRAVITY 1.004 (1.000-1.030); UROBILINOGEN 0.2 MG/DL (0.2-1.0)
[2017-05-10 03:47] VITALS: BP 117/68
[2017-05-10 05:10] LABS: HEMATOCRIT 45.1 % (38.0-50.0); HEMOGLOBIN 15.6 G/DL (12.5-16.6); MCH 29.2 PG (29.0-34.0); MCHC 34.6 G/DL (30.0-36.0); MCV 84.3 FL (86-99); PLATELET COUNT 178 K/uL (156-360); RBC DIS.WIDTH-CV 13.3 % (11.8-14.6); RBC DIS.WIDTH-SD 40.6 % (39-53); RED BLOOD COUNT 5.35 M/uL (4.00-5.50); WHITE BLOOD COUNT 11.4 K/uL (4.1-10.2)
[2017-05-10 06:04] LABS: ALKALINE PHOSPHATASE 93 IU/L (3-129); ALT (GPT) 15 IU/L (3-49); AST (GOT) 16 IU/L (2-34); CHLORIDE 105 MEQ/L (99-109); CREATININE 0.9 MG/DL (0.6-1.3); GFR ESTIMATE (CALCULATED) > 59 mL/min/ (58.99-99999); GLUCOSE 83 mg/dL (70-99); POTASSIUM 4.2 MEQ/L (3.7-5.4); SODIUM 138 MEQ/L (136-147); TOTAL BILIRUBIN 0.6 MG/DL (0.0-1.0); TOTAL PROTEIN 6.4 G/DL (6.4-8.3); UREA NITROGEN (BUN) 9 mg/dL (9-23)
[2017-05-10 08:27] VITALS: BP 131/81
[2017-05-10 11:30] VITALS: BP 131/68
[2017-05-10 15:04] VITALS: BP 161/94
== END 2017-05-10 18:12 | disposition home or self-care (01) ==
LOC: EME 19:00 → EDOF 22:57 → 5WEST 22:57 → ENRESERV 22:58 → 5WEST 05-10 00:19
PROVIDERS: Emergency Medicine; Hospitalist
DX: T43.592A Poisoning by other antipsychotics and neuroleptics, intentional self-harm, initial encounter (principal); F25.0 Schizoaffective disorder, bipolar type; F79 Unspecified intellectual disabilities; R11.2 Nausea with vomiting, unspecified; R19.7 Diarrhea, unspecified
CPT/HCPCS: 71046; 74021; 80048 91; 80053; 80178; 81003; 84439; 84443; 85027; 93005; 99281; 99285; G0378; G0480; J1650; J7030

== ENCOUNTER 2017-05-11 19:25 | Emergency (ER) | payer OTHER ==
[~2017-05-11] VITALS: Ht 175.3 cm; Wt 117.7 kg
[~2017-05-11 19:25] MED LIST changes: +ABILIFY MAINTE400 M1 IM; +BENZTROPINE MESY1 MG PO; +DEPAKOTE ER500 MG PO
[2017-05-11 20:45] LABS: HEMATOCRIT 46.4 % (38.0-50.0); HEMOGLOBIN 16.5 G/DL (12.5-16.6); MCHC 35.6 G/DL (30.0-36.0); MCV 81.5 FL (86-99); PLATELET COUNT 221 K/uL (156-360); RBC DIS.WIDTH-CV 13.1 % (11.8-14.6); RBC DIS.WIDTH-SD 38.2 % (39-53); RED BLOOD COUNT 5.69 M/uL (4.00-5.50); WHITE BLOOD COUNT 15.8 K/uL (4.1-10.2)
[2017-05-11 20:57] LABS: AMPHETAMINE NEGATIVE (500 ng/mL); BARBITURATES NEGATIVE (200 ng/mL); BENZODIAZEPINES NEGATIVE (150 ng/mL); BUPRENORPHINE NEGATIVE (10 ng/mL); COCAINE NEGATIVE (150 ng/mL); METHADONE NEGATIVE (200 ng/mL); METHAMPHETAMINE NEGATIVE (500 ng/mL); OPIATES (MORPHINE) NEGATIVE (100 ng/mL); OXYCODONE NEGATIVE (100 ng/mL); PHENCYCLIDINE NEGATIVE (25 ng/mL); PROPOXYPHENE NEGATIVE (300 ng/mL); THC CANNABINOIDS NEGATIVE (50 ng/mL); TRICYCLIC ANTIDEPRESSANTS NEGATIVE (300 ng/mL)
[2017-05-11 21:02] LABS: ALBUMIN 4.3 g/dL (3.2-4.8); CHLORIDE 106 mEq/L (99-109); POTASSIUM 3.6 mEq/L (3.7-5.4); SODIUM 138 mEq/L (136-147)
[2017-05-11 21:04] LABS: GLUCOSE 123 mg/dL (70-99); TOTAL PROTEIN 7.3 g/dL (6.4-8.3)
[2017-05-11 21:06] LABS: TOTAL BILIRUBIN 0.6 mg/dL (0.0-1.0)
[2017-05-11 21:07] LABS: SERUM ETHYL ALCOHOL < 10 mg/dL
[2017-05-11 21:08] LABS: ALKALINE PHOSPHATASE 129 IU/L (3-129); CREATININE 0.9 mg/dL (0.6-1.3); GFR ESTIMATE (CALCULATED) > 59 mL/min/ (58.99-99999)
[2017-05-11 21:09] LABS: AST (GOT) 16 IU/L (2-34)
[2017-05-11 21:10] LABS: UREA NITROGEN (BUN) 12 mg/dL (9-23)
[2017-05-11 21:11] LABS: SALICYLATE < 5.0 MG/DL (15-30)
[2017-05-11 21:12] LABS: ACETAMINOPHEN (TYLENOL) < 10 mcg/mL (10-30); ALT (GPT) 17 IU/L (3-49)
[2017-05-12 02:59] VITALS: BP 130/77
== END 2017-05-12 03:00 | disposition home or self-care (01) ==
LOC: EME → EDBD 19:25 → EME 19:25
PROVIDERS: Emergency Medicine
DX: T43.591A Poisoning by other antipsychotics and neuroleptics, accidental (unintentional), initial encounter (principal); F25.0 Schizoaffective disorder, bipolar type; F91.3 Oppositional defiant disorder; F98.8 Other specified behavioral and emotional disorders with onset usually occurring in childhood and adolescence
CPT/HCPCS: 80053; 80178; 85027; 90837; 93005; 99281; 99285; G0480

== ENCOUNTER 2017-06-05 16:31 | Emergency (ER) | payer OTHER ==
[~2017-06-05] VITALS: Ht 172.7 cm; Wt 113.6 kg
[2017-06-05 18:14] LABS: HEMATOCRIT 48.8 % (38.0-50.0); HEMOGLOBIN 17.3 G/DL (12.5-16.6); MCH 29.4 PG (29.0-34.0); MCHC 35.5 G/DL (30.0-36.0); MCV 82.9 FL (86-99); PLATELET COUNT 207 K/uL (156-360); RBC DIS.WIDTH-CV 13.4 % (11.8-14.6); RBC DIS.WIDTH-SD 40.6 % (39-53); RED BLOOD COUNT 5.89 M/uL (4.00-5.50)
[2017-06-05 18:30] LABS: ALBUMIN 4.4 g/dL (3.2-4.8); CHLORIDE 105 mEq/L (99-109); POTASSIUM 4.2 mEq/L (3.7-5.4); SODIUM 141 mEq/L (136-147)
[2017-06-05 18:32] LABS: APPEARANCE CLEAR ((CLEAR)); BILIRUBIN NEGATIVE; BLOOD NEGATIVE; COLOR YELLOW ((YELLOW)); GLUCOSE (STRIP) NEGATIVE; KETONES NEGATIVE; LEUKOCYTES NEGATIVE; NITRITE NEGATIVE; PROTEIN (STRIP) NEGATIVE; SPECIFIC GRAVITY 1.024 (1.000-1.030); UCUL ADDED? NO; UROBILINOGEN 0.2 MG/DL (0.2-1.0)
[2017-06-05 18:32] LABS: GLUCOSE 82 mg/dL (70-99); TOTAL PROTEIN 7.6 g/dL (6.4-8.3)
[2017-06-05 18:34] LABS: TOTAL BILIRUBIN 0.4 mg/dL (0.0-1.0)
[2017-06-05 18:35] LABS: SERUM ETHYL ALCOHOL < 10 mg/dL
[2017-06-05 18:36] LABS: GFR ESTIMATE (CALCULATED) > 59 mL/min/ (58.99-99999)
[2017-06-05 18:37] LABS: ALKALINE PHOSPHATASE 141 IU/L (3-129)
[2017-06-05 18:38] LABS: AST (GOT) 27 IU/L (2-34)
[2017-06-05 18:39] LABS: SALICYLATE < 5.0 MG/DL (15-30); UREA NITROGEN (BUN) 14 mg/dL (9-23)
[2017-06-05 18:40] LABS: ACETAMINOPHEN (TYLENOL) < 10 mcg/mL (10-30); ALT (GPT) 25 IU/L (3-49)
[2017-06-05 19:10] VITALS: BP 137/79
[2017-06-05 19:10] LABS: AMPHETAMINE NEGATIVE (500 ng/mL); BARBITURATES NEGATIVE (200 ng/mL); BENZODIAZEPINES NEGATIVE (150 ng/mL); BUPRENORPHINE NEGATIVE (10 ng/mL); COCAINE NEGATIVE (150 ng/mL); METHADONE NEGATIVE (200 ng/mL); METHAMPHETAMINE NEGATIVE (500 ng/mL); OPIATES (MORPHINE) NEGATIVE (100 ng/mL); OXYCODONE NEGATIVE (100 ng/mL); PHENCYCLIDINE NEGATIVE (25 ng/mL); PROPOXYPHENE NEGATIVE (300 ng/mL); THC CANNABINOIDS NEGATIVE (50 ng/mL); TRICYCLIC ANTIDEPRESSANTS PRESUMPTIVE POSITIVE (300 ng/mL)
== END 2017-06-05 19:10 | disposition home or self-care (01) ==
LOC: EME 16:31
PROVIDERS: Emergency Medicine
DX: F32.9 Major depressive disorder, single episode, unspecified (principal); F25.0 Schizoaffective disorder, bipolar type; F31.9 Bipolar disorder, unspecified; F98.8 Other specified behavioral and emotional disorders with onset usually occurring in childhood and adolescence; F91.3 Oppositional defiant disorder; Z91.5 Personal history of self-harm; Z88.8 Allergy status to other drugs, medicaments and biological substances
CPT/HCPCS: 80053; 81003; 85027; 90839; 99281; 99285; G0480

== ENCOUNTER 2017-07-21 12:22 | Emergency (ER) | payer OTHER ==
[~2017-07-21] VITALS: Ht 170.2 cm; Wt 97.7 kg
[2017-07-21 12:47] LABS: MCH 29.7 PG (29.0-34.0); MCHC 35.6 G/DL (30.0-36.0); MCV 83.5 FL (86-99); PLATELET COUNT 186 K/uL (156-360); RBC DIS.WIDTH-CV 13.5 % (11.8-14.6); RBC DIS.WIDTH-SD 41.1 % (39-53); RED BLOOD COUNT 5.39 M/uL (4.00-5.50); WHITE BLOOD COUNT 8.9 K/uL (4.1-10.2)
[2017-07-21 12:57] LABS: ALBUMIN 4.2 g/dL (3.2-4.8); CHLORIDE 110 mEq/L (99-109); POTASSIUM 4.1 mEq/L (3.7-5.4); SODIUM 142 mEq/L (136-147)
[2017-07-21 13:00] LABS: GLUCOSE 95 mg/dL (70-99); TOTAL PROTEIN 6.9 g/dL (6.4-8.3)
[2017-07-21 13:02] LABS: TOTAL BILIRUBIN 0.3 mg/dL (0.0-1.0)
[2017-07-21 13:03] LABS: SERUM ETHYL ALCOHOL < 10 mg/dL
[2017-07-21 13:04] LABS: ALKALINE PHOSPHATASE 121 IU/L (3-129); CREATININE 0.8 mg/dL (0.6-1.3); GFR ESTIMATE (CALCULATED) > 59 mL/min/ (58.99-99999)
[2017-07-21 13:05] LABS: AST (GOT) 18 IU/L (2-34)
[2017-07-21 13:06] LABS: UREA NITROGEN (BUN) 12 mg/dL (9-23)
[2017-07-21 13:07] LABS: ALT (GPT) 21 IU/L (3-49); SALICYLATE < 5.0 MG/DL (15-30)
[2017-07-21 13:08] LABS: ACETAMINOPHEN (TYLENOL) < 10 mcg/mL (10-30)
[2017-07-21 15:40] VITALS: BP 129/77
== END 2017-07-21 15:53 | disposition home or self-care (01) ==
LOC: EME 12:22
PROVIDERS: Emergency Medicine
DX: F31.9 Bipolar disorder, unspecified (principal); F25.0 Schizoaffective disorder, bipolar type; F70 Mild intellectual disabilities; Z91.5 Personal history of self-harm
CPT/HCPCS: 80053; 81003; 85027; 90837; 99281; 99284; G0480

== ENCOUNTER 2017-08-19 18:10 | Emergency (ER) | payer OTHER ==
[~2017-08-19] VITALS: Ht 175.3 cm; Wt 125.5 kg
[2017-08-19 19:49] LABS: HEMATOCRIT 44.9 % (38.0-50.0); HEMOGLOBIN 15.9 G/DL (12.5-16.6); MCH 29.2 PG (29.0-34.0); MCHC 35.4 G/DL (30.0-36.0); MCV 82.5 FL (86-99); PLATELET COUNT 199 K/uL (156-360); RBC DIS.WIDTH-CV 13.1 % (11.8-14.6); RBC DIS.WIDTH-SD 38.5 % (39-53); RED BLOOD COUNT 5.44 M/uL (4.00-5.50); WHITE BLOOD COUNT 10.6 K/uL (4.1-10.2)
[2017-08-19 19:55] LABS: INTER. NORMALIZED RATIO 1.1
[2017-08-19 19:58] LABS: PTT 29.3 SEC (25-37)
[2017-08-19 20:14] LABS: CHLORIDE 104 MEQ/L (99-109); POTASSIUM 3.9 MEQ/L (3.7-5.4); SODIUM 139 MEQ/L (136-147)
[2017-08-19 20:27] LABS: ACETAMINOPHEN (TYLENOL) < 10 MCG/ML (10-30); CREATININE 1.4 MG/DL (0.6-1.3); GFR ESTIMATE (CALCULATED) > 59 mL/min/ (58.99-99999); GLUCOSE 94 mg/dL (70-99); SALICYLATE < 1.0 MG/DL (15-30); UREA NITROGEN (BUN) 11 mg/dL (9-23)
[2017-08-19 20:31] LABS: SERUM ETHYL ALCOHOL < 10 mg/dL
[2017-08-19 20:45] LABS: VALPROIC ACID (DEPAKOTE) < 10.0 MCG/ML (50-100)
[2017-08-19 23:05] LABS: AMPHETAMINE NEGATIVE (500 ng/mL); BARBITURATES NEGATIVE (200 ng/mL); BENZODIAZEPINES NEGATIVE (150 ng/mL); BUPRENORPHINE NEGATIVE (10 ng/mL); COCAINE NEGATIVE (150 ng/mL); METHADONE NEGATIVE (200 ng/mL); METHAMPHETAMINE NEGATIVE (500 ng/mL); OPIATES (MORPHINE) NEGATIVE (100 ng/mL); OXYCODONE NEGATIVE (100 ng/mL); PHENCYCLIDINE NEGATIVE (25 ng/mL); PROPOXYPHENE NEGATIVE (300 ng/mL); THC CANNABINOIDS NEGATIVE (50 ng/mL); TRICYCLIC ANTIDEPRESSANTS PRESUMPTIVE POSITIVE (300 ng/mL)
[2017-08-20 01:36] LABS: CHLORIDE 107 mEq/L (99-109); POTASSIUM 4.4 mEq/L (3.7-5.4); SODIUM 140 mEq/L (136-147)
[2017-08-20 01:38] LABS: GLUCOSE 97 mg/dL (70-99)
[2017-08-20 01:42] LABS: CREATININE 1.9 mg/dL (0.6-1.3); GFR ESTIMATE (CALCULATED) 48 mL/min/ (58.99-99999)
[2017-08-20 01:43] LABS: UREA NITROGEN (BUN) 11 mg/dL (9-23)
[2017-08-20 03:10] LABS: VALPROIC ACID (DEPAKOTE) 4.2 MCG/ML (50-100)
[2017-08-20 13:07] VITALS: BP 138/86
== END 2017-08-20 13:12 ==
LOC: EME 18:10
PROVIDERS: Physician Assistant
DX: T43.212A Poisoning by selective serotonin and norepinephrine reuptake inhibitors, intentional self-harm, initial encounter (principal); T43.592A Poisoning by other antipsychotics and neuroleptics, intentional self-harm, initial encounter; F32.9 Major depressive disorder, single episode, unspecified; F25.0 Schizoaffective disorder, bipolar type; F70 Mild intellectual disabilities; Z04.6 Encounter for general psychiatric examination, requested by authority; F91.3 Oppositional defiant disorder
CPT/HCPCS: 80048; 80164; 85027; 85610; 85730; 90837; 99281; 99285; G0480; J7030